=== PATIENT | male | born 1965 | race Caucasian/White ===

== ENCOUNTER 2016-12-09 08:34 | Emergency (ER) | payer OTHER ==
[2016-12-09 08:55] VITALS: BP 144/90
--- NOTE | 2016-12-09 10:03 | RAD ---
INDICATION: Atraumatic neck pain COMPARISON: None TECHNIQUE: Routine five-view imaging was performed FINDINGS: Bones: There are no acute bony findings. There are there is anterior vertebral spurring at C4-C6. There is minor mid cervical facet arthropathy. Craniocervical junction: The odontoid and atlantodental interval are normal. Alignment: Normal Disc spaces: The disc spaces are well-maintained Soft tissues: The prevertebral soft tissues are normal. IMPRESSION: MINOR MIDCERVICAL OSTEOARTHRITIS
[2016-12-09 12:36] LABS: Hematocrit 46 % (42-52); Hemoglobin 15.8 g/dl (14.0-18.0); Mean Corpuscular HGB Conc 34 g/dl (31-36); Mean Corpuscular Hemoglobin 32 pg (27-31); Mean Corpuscular Volume 93 fL (80-94); Mean Platelet Volume 9 um3 (7.4-10.4); Red Cell Distribution Width 12 % (10.5-15); White Blood Count 8.4 10^3/ul (3.5-10.8)
[2016-12-09 13:26] LABS: Erythrocyte Sed Rate 24 mm/Hr (0-20)
[2016-12-11 20:04] LABS: B. miyamotoi PCR, B Negative (Negative); Babesia divergens/MO-1 Negative (Negative); Babesia ducani Negative (Negative); Ehrlichia ewingii/canis Negative (Negative)
[2016-12-12 15:10] LABS: Lyme Disease IgG Ab WB Positive (Negative)
--- NOTE | 2016-12-14 22:40 | UC ---
Ismael Weiss Matthew, scribed for Cecily Perez MD on 12/09/16 at 0915 . Neck Pain HPI - HPI Summary HPI Summary: A 51 y/o male presents to [facility] [place] with progressively worsening right sided neck discomfort since two days ago. The pain began mildly two days ago and has been progressively worsening since yesterday. The pain is rated 5/10 in severity. The patient states that he chronically has a stiff neck and pain; however this pain is worse than normal. Associated symptoms include pain with swallowing. The patient denies trauma, weakness, and tingling. The pain worsens with flexion of the neck. He is also c/o of red streak on his right thigh since three weeks ago and an ovoid rash on his left thigh. He states that the red streaks appear similar to a rash behind his knee approximate 6 months ago. At that time, he was seen by his PCP, who prescribed Abx, which improved his symptoms. He denies rashes and lumps on his groin. - History of Current Complaint Chief Complaint: UCBackPain Stated Complaint: NECK PAIN Time Seen by Provider: 12/09/16 08:52 Hx Obtained From: Patient Onset/Duration Of Injury/Symptoms: Days - two days ago Mechanism Of Injury: No Known Trauma Timing: Constant Onset/Duration: Gradual Onset - progessively worsening Severity: Moderate Pain Intensity: 5 Pain Scale Used: 0-10 Numeric Location: Discrete At: - right sided neck pain Aggravating Factors: Movement - flexion of the neck Alleviating Factors: Nothing Associated Signs & Symptoms: Negative: Weakness - Allergies/Home Medications Allergies/Adverse Reactions: Allergies Allergy/AdvReac Type Severity Reaction Status Date / Time No Known Allergies Allergy Verified 12/09/16 08:37 Home Medications: Home Medications B-Complex Vitamins [Vitamin B Complex] 12/09/16 [History] Levothyroxine TAB* [Synthroid 25 MCG TAB*] 12/09/16 [History] Pravastatin (NF) [Pravachol (NF)] 12/09/16 [History] PMH/Surg Hx/FS Hx/Imm Hx Endocrine History Of: Reports: Thyroid Disease - hypo Cardiovascular History Of: Denies: Pacemaker/ICD - Surgical History Surgical History: Yes Surgery Procedure, Year, and Place: LEFT SHOULDER SURGERY - Family History Known Family History: Negative: Cardiac Disease, Hypertension, Diabetes - Social History Alcohol Use: Weekly Alcohol Amount: 3-4 x's weekly Substance Use Type: None Smoking Status (MU): Heavy Every Day Tobacco Smoker Type: Cigarettes Amount Used/How Often: 1 1/2 PPD Length of Time of Smoking/Using Tobacco: began at 20 years of age Have You Smoked in the Last Year: Yes Review Of Systems Constitutional: Positive: Negative Skin: Positive: Rash - red streaks on the right thigh and an oviod rash on the left thigh ENT: Positive: Negative, Dental Pain Cardiovascular: Positive: Negative Gastrointestinal: Positive: Negative Genitourinary: Positive: Negative Musculoskeletal: Positive: Myalgia - right sided neck pain Neurological: Positive: Negative Psychological: Positive: Negative All Other Systems Reviewed And Are Negative: Yes Physical Exam Triage Information Reviewed: Yes Appearance: Well-Appearing - sitting up during exam. but hurts to move neck to the right., Well-Nourished Vital Signs: Initial Vital Signs Temp 97.1 F 12/09/16 08:38 Pulse 100 12/09/16 08:38 Resp 16 12/09/16 08:38 BP 155/112 12/09/16 08:38 Pulse Ox 100 12/09/16 08:38 Vital Signs Reviewed: Yes Eye Exam: Normal ENT Exam: Normal Neck exam: Other Neck: Positive: No Lymphadenopathy Respiratory Exam: Normal Respiratory: Positive: Chest non-tender, Lungs clear, Normal breath sounds, No respiratory distress, No accessory muscle use Cardiovascular Exam: Normal Cardiovascular: Positive: RRR, No Murmur, Pulses Normal, Brisk Capillary Refill Abdominal Exam: Normal Abdomen Description: Positive: Nontender, No Organomegaly, Soft, Bruit Bowel Sounds: Positive: Present Musculoskeletal Exam: Normal - neck with tenderness to right side and spasm. No focal richelle tenderness, but tenderness elicited adrianna with turn to right -> approx c 4 - 6 region. No crepitus. No discoloration. SCM bellies nontender. Painful and hesitation to turn to the right, fully flex and extend. No paresth / dysesth / focal weakness. Neurological Exam: Normal - DTR's 2+ rad / br / popl grossly equal. Feet warm to touch. Distal sens x 4 ext's LT general intact. CN- 1 - 12 intact, denies smell deficit. Psychological Exam: Normal - conversing easily and appropriately Skin Exam: Other - normal color and turgor R post med distal thigh extending just above popl fossa with dark red, + blachable, flat, fairly uniform rash. approx 18cmL x 12cmW not hot to touch. No drainage, nontender to examination. No appreciable inguinal or popl adenopathy. R lat thigh with nearly circumferential raised circular lesion. 2cm L x 1 cm W Highly susp of fungal dermatitis. (this is different from post thigh rash). Diagnostics - Radiology C-Spine XR Xray Interpretation: No Acute Changes - IMPRESSION: MINOR MIDCERVICAL OSTEOARTHRITIS Radiology Interpretation Completed By: Radiologist Neck Pain Course/Dx - Course Course Of Treatment: No new problems in [facility]. Considered below differential Dx s. Pt reports that approx 6 mo ago, was treated w/ abx (doxy?) for presumptive lyme rash. Length of time unclear. As such, will check tick borne panel, lyme , inflamm studies. D/w pt, he expresses understanding and agreement. R neck + spasm c/w torticollis. Hx degenerative d/o's to neck in the past. Likely correlation. Xray report neck reviewed in [facility]. Reviewed w/ pt. He will f /u pcp in about a week for lab review and neck recheck. Smoking cessation encouraged. BP elevated today (recheck diast 90). Will f/u w pcp regarding this as well. Rx -. doxy x 30 days. Ibuprofen 600mg prn. Lotrisone (fungal dermatitis). [place] 5/325 # 16. Narc talk. Denies hx addiction. ISTOP reviewed. . soft collar for comfort. Questions answered to the best of my ability. - Differential Dx/Diagnosis Provider Diagnoses: acute torticollis. arthritis. rash, consider tick borne related. elevated bp Discharge - Discharge Plan Condition: Stable Disposition: HOME Prescriptions: Clotrimazole/Betamethasone* [Lotrisone Cream*] 1 applic TOPICAL BID #1 tube DOXYcycline CAP(*) [DOXYcycline 100MG CAP(*)] 100 mg PO BID #60 cap HYDROcodone/ACETAMIN 5-325 MG* [[place] 5-325 TAB*] 2 tab PO Q6H PRN #16 tab MDD 8 PRN Reason: Pain Ibuprofen TAB* [Motrin TAB* 600 MG] 600 mg PO Q8H PRN #30 tab PRN Reason: Pain Patient Education Materials: How to Stop Smoking (ED), Lyme Disease (ED), Cigarette Smoking and Your Health (GEN), Spasmodic Torticollis (ED), Soft Cervical Collar (ED), Hypertension (ED), Neck Pain (ED) Referrals: Topher Low MD [Primary Care Provider] - Additional Instructions: You have blood tests in the lab, looking for tick diseases Blood pressure elevated today. Follow up with Dr Low in about a week for recheck and lab review. Please consider decrease or stop smoking. Your blood pressure measured today was 144/90. The documentation as recorded by the Ismael olsen Matthew accurately reflects the service I personally performed and the decisions made by me, Cceily Perez MD.
== END 2016-12-09 10:29 | disposition home or self-care (01) ==
LOC: UCEAST 08:34
DX: M43.6 Torticollis (principal); M47.812 Spondylosis without myelopathy or radiculopathy, cervical region; R21 Rash and other nonspecific skin eruption; R03.0 Elevated blood-pressure reading, without diagnosis of hypertension; F17.210 Nicotine dependence, cigarettes, uncomplicated
CPT/HCPCS: 36415; 72050; 85025; 85652; 86140; 86617; 86618; 87798; 99212; G0463

== ENCOUNTER 2017-06-12 07:10 | Emergency (ER) | payer OTHER ==
[2017-06-12 07:34] VITALS: BP 169/91
--- NOTE | 2017-06-12 07:52 | UC ---
Throat Pain/Nasal Maximo HPI - HPI Summary HPI Summary: [address] AND FATIGUE. FELT BETTER YESTERDAY BUT THEN TODAY FELT WORSE AGAIN. NO FEVER. NO DYSPHAGIA. - History of Current Complaint Chief Complaint: UCRespiratory Stated Complaint: THROAT PAIN Time Seen by Provider: 06/12/17 07:42 Hx Obtained From: Patient Onset/Duration: Gradual Onset, Lasting Days, Still Present Severity: Moderate Pain Intensity: 7 Pain Scale Used: 0-10 Numeric Cough: None Associated Signs & Symptoms: Negative: Fever - Allergies/Home Medications Allergies/Adverse Reactions: Allergies Allergy/AdvReac Type Severity Reaction Status Date / Time No Known Allergies Allergy Verified 12/09/16 08:37 Home Medications: Home Medications Cyanocobalamin [Vitamin B-12] 1 tab PO DAILY 06/12/17 [History Confirmed ] PMH/Surg Hx/FS Hx/Imm Hx Endocrine History: Hypothyroidism, Dyslipidemia - Surgical History Surgical History: Yes Surgery Procedure, Year, and Place: LEFT SHOULDER SURGERY 1979' - Family History Known Family History: Negative: Cardiac Disease, Hypertension, Diabetes - Social History Alcohol Use: Weekly Alcohol Amount: 3-4 x's weekly Substance Use Type: None Smoking Status (MU): Heavy Every Day Tobacco Smoker Type: Cigarettes Amount Used/How Often: 1 1/2 PPD Length of Time of Smoking/Using Tobacco: began at 20 years of age Have You Smoked in the Last Year: Yes Review of Systems Constitutional: Fatigue ENT: Sore Throat Respiratory: Negative Cardiovascular: Negative Gastrointestinal: Negative All Other Systems Reviewed And Are Negative: Yes Physical Exam Triage Information Reviewed: Yes Appearance: Well-Appearing, No Pain Distress, Well-Nourished Vital Signs: Initial Vital Signs Temp 97.5 F 06/12/17 07:24 Pulse 100 06/12/17 07:24 Resp 16 06/12/17 07:24 BP 169/91 06/12/17 07:24 Pulse Ox 97 06/12/17 07:24 Vital Signs Reviewed: Yes Eyes: Positive: Conjunctiva Clear ENT: Positive: Hearing grossly normal, Pharyngeal erythema - SCATTERED SMALL SPFL ULCERATIONS, TMs normal. Negative: Tonsillar swelling, Tonsillar exudate, Muffled/hoarse voice Neck: Positive: Supple, Nontender, No Lymphadenopathy Respiratory Exam: Normal Cardiovascular Exam: Normal Abdomen Description: Positive: Soft Musculoskeletal: Positive: No Edema Neurological: Positive: Alert Psychological: Positive: Age Appropriate Behavior Skin: Negative: rashes Diagnostics - Laboratory Diagnostic Studies Completed/Ordered: RAPID STREP NEGATIVE Throat Pain/Nasal Course/Dx - Differential Dx/Diagnosis Provider Diagnoses: ACUTE PHARYNGITIS Discharge - Discharge Plan Condition: Stable Disposition: HOME Prescriptions: Acetaminop/Codeine 30 MG TAB* [Tylenol/Codeine 30 MG TAB*] 1 - 2 tab PO Q6H PRN #20 tab MDD 8 PRN Reason: Pain Lidocaine 2% VISCOUS* 5 - 10 ml MT Q3HR PRN #150 ml PRN Reason: Pain Patient Education Materials: Pharyngitis (ED) Referrals: Topher Low MD [Primary Care Provider] - If Needed Additional Instructions: STREP TEST NEGATIVE. LIKELY VIRAL IN ETIOLOGY AND WILL RESOLVE WITH TIME. VISCOUS LIDOCAINE AND OTC IBUPROFEN NEEDED FOR DISCOMFORT. TYLENOL #3 IF NEEDED. FOLLOW-UP IF NOT IMPROVING OVER THE NEXT 1-2 WEEKS.
== END 2017-06-12 08:38 | disposition home or self-care (01) ==
LOC: UCEAST 07:10
DX: J02.9 Acute pharyngitis, unspecified (principal); R53.83 Other fatigue; E03.9 Hypothyroidism, unspecified; E78.5 Hyperlipidemia, unspecified; F17.210 Nicotine dependence, cigarettes, uncomplicated
CPT/HCPCS: 87651; 99212; G0463

== ENCOUNTER 2017-06-13 05:32 | Emergency (ER) | payer OTHER ==
[2017-06-13] MEDS ORDERED: methylPREDNISolone 125 MG* 2 ML VIAL IV ONE (05:50)
[2017-06-13] MEDS ORDERED: NS 0.9% 1000 ML* 2,000 ML IV ONE (05:50)
[2017-06-13] MEDS ORDERED: Ketorolac INJ* 30 MG/ML 1 ML VIAL IV PUSH ONE (05:53)
[2017-06-13] MEDS ORDERED: cefTRIAXone VIAL(*) 1,000 MG in NS 0.9% 50 ML* 50 ML IVPB ONE (05:53)
[2017-06-13 06:13] LABS: Hematocrit 47 % (42-52); Hemoglobin 15.9 g/dl (14.0-18.0); Mean Corpuscular HGB Conc 34 g/dl (31-36); Mean Corpuscular Hemoglobin 32 pg (27-31); Mean Corpuscular Volume 94 fL (80-94); Mean Platelet Volume 8 um3 (7.4-10.4); Red Blood Count 4.98 10^6/ul (4.0-5.4); Red Cell Distribution Width 13 % (10.5-15)
[2017-06-13 06:27] LABS: Albumin 4.2 g/dL (3.2-5.2); Calcium 9.8 mg/dL (8.6-10.3); EGFR African American 126.9 (>60); EGFR Non-African American 98.7 (>60); Globulin 3.5 g/dL (2-4); Potassium 3.7 mmol/L (3.5-5.0); Total Bilirubin 0.7 mg/dL (0.2-1.0); Total Protein 7.7 g/dL (6.4-8.9)
--- NOTE | 2017-06-13 06:52 | ED ---
Geraldo Weiss Rebecca, scribed for LeslieMichele on 06/13/17 at 0546 . Throat Pain/Nasal Congestion - HPI Summary HPI Summary: Pt is a 51 yo M who presents to ED c/o throat pain. Pain began 3 days ago and has been constant since onset, improving slightly Saturday morning, but worsening again Saturday evening. Pain is currently moderate, ranked 6/10. Additionally c/o dental pain and decreased PO intake secondary to pain. Denies fever, CP, SOB, ear pain. Sx aggravated and alleviated by nothing. Pt evaluated by [facility] yesterday for the same sx where a rapid strep returned negative and he was given an Rx for Lidocaine and Ibuprofen with Codeine which is not helping sx. - History of Current Complaint Chief Complaint: EDThroatPain Time Seen by Provider: 06/13/17 05:42 Hx Obtained From: Patient Onset/Duration: Lasting Days, Still Present Severity: Moderate - 6/10 - Allergies/Home Medications Allergies/Adverse Reactions: Allergies Allergy/AdvReac Type Severity Reaction Status Date / Time No Known Allergies Allergy Verified 06/13/17 05:36 PMH/Surg Hx/FS Hx/Imm Hx Endocrine/Hematology History: Reports: Hx Thyroid Disease - hypo Denies: Hx Diabetes Cardiovascular History: Reports: Hx Hypercholesterolemia Denies: Hx Hypertension, Hx Pacemaker/ICD Respiratory History: Denies: Hx Asthma, Hx Chronic Obstructive Pulmonary Disease (COPD) GI History: Denies: Hx Ulcer Musculoskeletal History: Denies: Hx Scoliosis Sensory History: Denies: Hx Hearing Aid Neurological History: Denies: Hx Headaches, Other Neuro Impairments/Disorders Psychiatric History: Denies: Hx Panic Disorder - Surgical History Surgery Procedure, Year, and Place: LEFT SHOULDER SURGERY Infectious Disease History: No Infectious Disease History: Denies: Hx Clostridium Difficile, Hx Hepatitis, Hx Human Immunodeficiency Virus (HIV), Hx of Known/Suspected MRSA, Hx Shingles, Hx Tuberculosis, Hx Known/ Suspected VRE, Hx Known/Suspected VRSA, History Other Infectious Disease, Traveled Outside the [place] in Last 30 Days - Family History Known Family History: Negative: Cardiac Disease, Hypertension, Diabetes - Social History Alcohol Use: Weekly Alcohol Amount: 3-4 x's weekly Substance Use Type: Reports: None Smoking Status (MU): Heavy Every Day Tobacco Smoker Type: Cigarettes Amount Used/How Often: 1 1/2 PPD Length of Time of Smoking/Using Tobacco: began at 20 years of age Have You Smoked in the Last Year: Yes Review of Systems Negative: Fever Positive: Dental Pain, Sore Throat. Negative: Ear Ache Negative: Chest Pain Negative: Shortness Of Breath Positive: Other - Decreased PO intake All Other Systems Reviewed And Are Negative: Yes Physical Exam Triage Information Reviewed: Yes Vital Signs On Initial Exam: Initial Vitals Temp Pulse Resp BP Pulse Ox 97.6 F 120 16 169/109 98 06/13/17 05:36 06/13/17 05:36 06/13/17 05:36 06/13/17 05:36 06/13/17 05:36 Vital Signs Reviewed: Yes Appearance: Positive: Well-Appearing, No Pain Distress Skin: Positive: Warm, Skin Color Reflects Adequate Perfusion, Dry Head/Face: Positive: Normal Head/Face Inspection Eyes: Positive: EOMI, EDGAR ENT: Positive: Pharyngeal erythema, Tonsillar swelling Neck: Positive: Supple, Nontender Respiratory/Lung Sounds: Positive: Clear to Auscultation, Breath Sounds Present Cardiovascular: Positive: Pulses are Symmetrical in both Upper and Lower Extremities, Tachycardia Abdomen Description: Positive: Nontender, Soft Bowel Sounds: Positive: Present Musculoskeletal: Positive: Normal, Strength/ROM Intact Neurological: Positive: Normal, Sensory/Motor Intact, Alert, Oriented to Person Place, Time Diagnostics - Vital Signs Vital Signs Temp Pulse Resp BP Pulse Ox 06/13/17 05:38 97.6 F 120 16 169/109 99 06/13/17 05:36 97.6 F 120 16 169/109 98 - Laboratory Result Diagrams: 06/13/17 06:00 06/13/17 06:00 Lab Statement: Any lab studies that have been ordered have been reviewed, and results considered in the medical decision making process. - Radiology CXR Xray Interpretation: No Acute Changes Radiology Interpretation Completed By: ED Physician Re-Evaluation - Re-Evaluation First Eval Re-Evaluation Time: 06:45 Change: Improved Comment: Discussed CXR and lab results. EENT Course/Dx - Course Assessment/Plan: Pt is a 51 yo M who presents to ED c/o throat pain. Pain began 3 days ago and has been constant since onset, improving slightly Saturday morning , but worsening again Saturday evening. Pain is currently moderate, ranked 6/10. Additionally c/o dental pain and decreased PO intake secondary to pain. Denies fever, CP, SOB, ear pain. Pt evaluated by [facility] yesterday for the same sx where a rapid strep returned negative and he was given an Rx for Lidocaine and Ibuprofen with Codeine which is not helping sx. CXR reveals no acute findings. Pt will be D/C to home with Dx of dysphagia and pharyngitis with Rx for Augmentin and Deltasone. He understands and agrees. Patient's medications reviewed this visit. - Diagnoses Provider Diagnoses: Pharyngitis, Dysphagia Discharge - Discharge Plan Condition: Stable Disposition: HOME Prescriptions: Amoxicillin/Clavulanate TAB* [Augmentin TAB 875*] 875 mg PO BID #14 tab predniSONE TAB* [Deltasone TAB*] 50 mg PO ONCE #4 tab Patient Education Materials: Pharyngitis (ED), Dysphagia (ED) Referrals: Topher Low MD [Primary Care Provider] - 3 Days The documentation as recorded by the Geraldo olsen Rebecca accurately reflects the service I personally performed and the decisions made by Leslie millan Emmanuel.
[2017-06-13 07:07] VITALS: BP 168/89
--- NOTE | 2017-06-13 08:10 | RAD ---
INDICATION: Shortness of breath. COMPARISON: There are no prior studies available for comparison. TECHNIQUE: A portable view of the chest was obtained. FINDINGS: Cardiac and mediastinal contours appear to be within normal limits. The lungs are clear. No pleural effusion is seen. IMPRESSION: NO EVIDENCE FOR ACUTE DISEASE.
== END 2017-06-13 07:13 | disposition home or self-care (01) ==
LOC: ED 05:32
DX: J02.9 Acute pharyngitis, unspecified (principal); K08.89 Other specified disorders of teeth and supporting structures; F17.210 Nicotine dependence, cigarettes, uncomplicated; R13.10 Dysphagia, unspecified
CPT/HCPCS: 36415; 71010; 80053; 85025; 85610; 85730; 96374; 99283; J0696; J1885; J2930

== ENCOUNTER 2018-07-02 16:03 | Observation (INO) | payer SELFPAY ==
--- OUTSIDE RECORDS SUMMARY | 2018-07-02 16:30 | XMS REPORT ---
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 Active Onset: 05/01/2007 Anxiety state Topher Low M.D. Active Onset: 10/08/2011 Alcohol abuse Topher Low M.D. Active Onset: 07/31/2017 Hypothyroidism Topher Low M.D. Active Onset: 07/23/2016 Mixed hyperlipidemia Topher Low M.D. Active Onset: 09/01/2014 Pure hyperglyceridemia Topher Low M.D. Active Onset: 03/08/2014 Abrasion of wrist Ger Vo M.D. Active Family History Date Family Member(s) Problem(s) Comments Onset: (age 40 Years) Father [place] First Sister Vitamin B12 Deficiency (Non Anemic) Social History Type Date Description Comments Cigarette Use Current Cigarette Smoker 1 Pack Daily Smoking Patient is a current smoker, smokes every day Allergies, Adverse Reactions, Alerts Date Description Reaction Status Severity Comments 06/21/2011 NKDA active Medications Medication Date Status Form Strength Qnty SIG Indications Ordering Provider Nicotine Mini 01/22 Active Lozenges 2mg 243un Weeks 1-6: 1 Topher A. its lozenge every Darlow, 1-2 hours; M.D. 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 HCL s Tablet By Darlow, Mouth Every M.D. Day Levothyroxine 02/28 Active Tablets 25mcg 60tab Take 1 Tablet Topher A. Sodium s By Mouth Darlow, Every Day M.D. Lovaza 09/01 Active Capsules 1gm 360ca Take 2 Carolina ps Capsules By Carlos, Mouth Two SURVEY OPERATIONS DIRECTOR Times Daily Pravastatin 05/26 Active Tablets 40mg 90tab Take 1 Tablet Topher A. Sodium s By Mouth One Darlow, Time Daily M.D. Vitamin B-12 Active Tablets 1000mcg 90tab 1 by mouth Unknown / s every day Non-Adherent 09/30 Hx 50uni use 2daily T24.002D Natalia Pad 3"X4" /2016 ts when dressing More, - wound on left SURVEY OPERATIONS DIRECTOR 06/27 Conforming 09/30 Hx 50uni use one to T24.002D Natalia Stretch Gauze /2016 ts wrap left More, Bandage 4" - foot daily SURVEY OPERATIONS DIRECTOR 06/27 for 3-4 weeks Silver 09/26 Hx Cream 1% 150gm apply thick T24.002A Nydia Peña Sulfadiazine /2016 layer to burn Jeanne, - twice daily M.D. 06/27 Doxycycline 12/09 Hx Tablets 100mg 60tab 1 by mouth Unknown Hycl DR velasquez twice a day - for 30 days 07/02 Viagra 07/23 Hx Tablets 100mg 2tabs 1/2 or 1 tab Topher A. /2015 prn 30-60 min Maranda, - before M.D. 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 piece every 1 Darlow, - to 2 hours; M.D. 07/23 Weeks -9, piece every 2 to 4 hours; Weeks -12, one piece every 4 to 8 hours. Viagra 02/28 Hx Tablets 100mg 35tab 1/2 or 1 tab Topher A. s prn 30-60 min Maranda, - before M.D. 07/23 Nicotrol 11/02 Hx Inhaler 10mg QS use 6 -16 Topher A. cartridges Maranda, - per day for 6 M.D. Pravastatin 08/26 Hx Tablets 20mg 30tab 1 po qd Topher A. s Maranda - M.DGil 08/26 Pravastatin 08/26 Hx Tablets 20mg 30tab 1 po qd Topher A. s Maranda - M.DGil 05/26 Nicoderm CQ 08/25 Hx Patches 21mg/24HR 30uni 1 qd x 1 305.1 Topher A. 24HR ts month Maranda - M.DGil 03/08 Valacyclovir 07/26 Hx Tablets 1gm 45tab Take One-Half 054.9 Topher A. s (11/26) Tablet Maranda, - Daily M.D. 08/25 Oxazepam 05/07 Hx Capsules 15mg 10cap 1 po q8h prn Topher A. s Maranda - M.DGil 07/05 Abilify 11/22 Hx Tablets 5mg 90tab 1 po qd 300.00 Topher A. s Maranda - M.DGil 01/03 Abilify 09/18 Hx Tablets 2mg 90tab 1 po qd 300.00 Topher A. s Maranda - M.DGil 11/22 Pristiq 08/07 Hx Tablets 100mg 90tab 1/2 po qd 300.00 Topher A. ER 24HR s Alexis Low M.D. 05/07 Klonopin 07/05 Hx Tablets 0.5mg 90tab 1 po qd prn 300.00 Topher A. Alexis Cool M.D. 05/07 Pristiq 07/05 Hx Tablets 50mg 30tab 1 po qd 300.00 Topher A. ER 24HR Alexis Oconnor M.D. 08/07 Viagra 09/22 Hx Tablets 100mg 35tab 1/2 or 1 tab Topher AGil s prn 30-60 min Alexis Low M.D. 05/07 Nicotrol 05/18 Hx Inhaler 10mg 3boxe use as Topher Payne Inhaler s Alexis Peterson M.D. 07/04 Labs 12/28 Hx stat ck-mb Topher Payne Alexis Low M.D. 12/29 Omeprazole 12/28 Hx Capsules 20mg 30cap 1 po qd Topher A. Alexis Camarillo M.D. 07/04 Viagra 09/08 Hx Tablets 50mg 30tab 2-1 po 1 hr Topher AGil s prior to Maranda - sexual M.DGil 09/22 Chantix 05/20 Hx 1unit as directed Topher Payne Starter Alexis Oconnor M.D. 09/07 Valtrex 05/20 Hx Tablets 1gm 45tab One-Half 054.9 Topher A. s Tablet By Maranda, - Mouth Every M.D. Simvastatin 12/02 Hx Tablets 20mg 90tab 1 PO QHS Topher AGil Alexis Oconnor M.D. 12/02 Pravastatin 12/02 Hx Tablets 20mg 30tab 1 po qd Topher A. Alexis Oconnor M.D. 05/20 Remeron 05/01 Hx Tablets 30mg 90tab 1 qhs Topher Payne Alexis Oconnor M.D. 05/20 Buspar 10/29 Hx Tablets 15mg 1 po qd [facility] 11/08 Of Paxil 10/29 Hx Tablets 20mg 90tab 1 po qd s [facility] 05/01 Of Mylo Triamcinolone 10/04 Hx Cream 0.1% 45gm Apply To Sandeep Alcantar Acetonide Affected Skin Breiman, - bid prn Albert 05/01 Lescol-XL 08/01 Hx 80mg 90uni 1 po qd Topher A. /2005 Alexis Gilliam M.D. 12/02 Buspar 08/01 Hx Tablets 15mg [address] Gonzales /2005 Doctor - 10/29 Note 03/06 Hx can not use Topher A. /2005 his Maranda - membership at [facility] 03/27 this time due to his neck problems Norflex 02/26 Hx Tablets 100mg 30tab 1 po bid as 272.0 Topher A. /2005 s Alexis Ríos M.D. 08/01 Relafen 02/26 Hx Tablets 500mg 30tab 1 po bid as 272.0 Topher A. /2005 s Alexis Peterson M.D. 08/01 Provigil 01/29 Hx Tablets 300mg 30tab 1 po qam Topher A. /2005 Alexis Oconnor M.D. 02/26 Physical 01/29 Hx treatment and Topher A. Therapy evaluation Alexis Low neck pain Jose.Jospeh 02/26 Provigil 01/03 Hx Tablets 200mg 30tab 1 po qd Topher A. /2005 Alexis Oconnor M.D. 01/29 Cymbalta 12/04 Hx Capsules 60mg 90cap 1 po qd Topher A. /2005 Alexis Oconnor M.D. 02/26 Nicotine 12/04 Hx 21mg 28uni 1 qd 305.1 Topher A. Patches Alexis Gilliam M.D. 01/29 Campral 10/[address] Gonzales Doctor - 01/03 Wellbutrin SR 10/25 Hx Tablets 0tabs 1 po bid Topher A. /2004 Alexis Low M.D. 10/25 Cymbalta 10/25 Hx Capsules 30mg 90cap 1 po qd Topher A Alexis Oconnor M.D. 12/04 Physical 10/25 Hx treatment and Topher A evaluation Alexis Low Neck pain M.DGil 01/03 Note No Work 10/25 Hx out of work indefinitely Maranda, - from 09/05/05 [facility] 01/03 until notice, anticipate return 11/26/05 Klonopin 09/05 Hx Tablets 0.5mg 60tab 1 po bid Topher A Alexis Oconnor M.D. 10/25 Work Excuse 09/05 Hx unable to work until Maranda - isreal Price 09/19 Celexa 07/26 Hx Tablets 20mg 60tab 2 po qd Topher A Alexis Oconnor M.D. 10/25 Buspar 11/27 Hx 10mg 60uni one bid Topher A Alexis Gilliam M.D. 08/01 Effexor XR 08/18 Hx Tablets 90tab Take 75 MG A s Day For A Maranda, - Week M.DGil 11/27 Then 37.5 /2005 MG A Day For A Week Effexor XR 05/05 Hx 75mg 30uni 1 po po qd Topher A Alexis Gilliam M.D. 08/18 Zoloft 03/06 Hx 100mg 30uni one PO qd Topher A Alexis Gilliam M.D. 05/05 Humibid DM 09/09 Hx 20uni 1 Tab Q 12 H ts prAlexis Erwin Afnp-C 09/19 Robitussin ac 09/09 Hx 4Oz 1-2 TSP PO Q4H prAlexis Erwin Afnp-C 09/19 Levaquin 09/07 Hx 500mg 10uni 1 qd Behzad J. Alexis Quinn M.D. 09/17 Wellbutrin-SR 04/27 Hx 150mg 30uni 1 qd Topher A. Alexis Gilliam MJonathan 09/07 Lescol-XL 07/18 Hx 80mg 90uni 1 po qd Topher A. Alexis Gilliam M.D. 02/26 Nizoral 01/22 Hx 200mg 30uni Apply qd Topher A. ts Maranda - M.DGil 02/19 Vioxx 02/13 Hx 25mg 33uni 2 PO qd For Topher A. ts The Next 3 Darrenetta, - Days, Then 1 M.D. 03/15 PO qd Neoprene 02/13 Hx 1unit Wear To Work Topher A. Slee s And During Sukhjinder, - Activity M.D. 02/14 Pristiq Hx Tablets 100mg 90tab 1 po qd Topher A. /0000 ER 24HR s Alexis Low [facility] 09/10 Abilify Hx Tablets 5mg 30tab 1 po qd Unknown /0000 s - 09/10 Zoloft Hx Tablets 100mg 30tab 1 1/2 po qd Unknown /0000 s - 08/25 Neurontin Hx Capsules 300mg 30cap 1 po tid Unknown /0000 s - 08/25 Fish Oil Hx Capsules 1000mg 1 by mouth Unknown /0000 DR every day - 09/01 Nicorette Hx Gum 4mg will take as Unknown /0000 directed - 07/23 Immunizations CPT Code Status Date Vaccine Lot # [id number] Given 2017 Influenza Vac, Quadrivalent, Slit Virus, Im [id number] Given 09/15/2016 Influenza Vac, Quadrivalent, Slit Virus, Im [id number] Given 09/03/2015 Influenza Vac, Quadrivalent, Slit Virus, Im [id number] Given 09/01/2014 DO Not Use Split Influenza Virus Vaccine [id number] Given 03/08/2014 Tdap Tetanus, W Pertussis [id number] Given 08/25/2013 DO Not Use Split Influenza Virus Vaccine [id number] Vital Signs Date Vital Result Comment 06/27/2018 BP Systolic 162 mmHg BP Diastolic 102 mmHg Heart Rate 96 /min Body Temperature 98.1 F Height 75 inches 6'3" Weight 210.50 lb BMI (Body Mass Index) 26.3 kg/m2 10/09/2017 BP Systolic 138 mmHg BP Diastolic 80 mmHg Heart Rate 96 /min Body Temperature 97.7 F Height 75 inches 6'3" Weight 209.00 lb BMI (Body Mass Index) 26.1 kg/m2 09/30/2017 BP Systolic 142 mmHg BP Diastolic 92 mmHg Heart Rate 88 /min Body Temperature 98.1 F Respiratory Rate 16 /min Weight 211.25 lb 09/26/2017 BP Systolic 120 mmHg BP Diastolic 80 mmHg Heart Rate 68 /min Body Temperature 97.9 F Respiratory Rate 18 /min Weight 211.00 lb 07/31/2017 BP Systolic 130 mmHg BP Diastolic 80 mmHg Heart Rate 78 /min Body Temperature 98.1 F Respiratory Rate 16 /min Height 75 inches 6'3" Weight 208.00 lb BMI (Body Mass Index) 26.0 kg/m2 07/02/2017 BP Systolic 110 mmHg BP Diastolic 80 mmHg Heart Rate 88 /min Body Temperature 98.1 F Respiratory Rate 18 /min Weight 206.00 lb 12/19/2016 BP Systolic 140 mmHg BP Diastolic 80 mmHg Heart Rate 96 /min Body Temperature 97.9 F Height 75 inches 6'3" Weight 210.50 lb BMI (Body Mass Index) 26.3 kg/m2 09/28/2016 BP Systolic 120 mmHg BP Diastolic 80 mmHg Heart Rate 76 /min Body Temperature 98.4 F Respiratory Rate 16 /min Height 75 inches 6'3" Weight 204.00 lb BMI (Body Mass Index) 25.5 kg/m2 07/23/2016 BP Systolic 130 mmHg BP Diastolic 80 mmHg Heart Rate 84 /min Body Temperature 96.4 F Respiratory Rate 16 /min Height 75 inches 6'3" Weight 205.00 lb BMI (Body Mass Index) 25.6 kg/m2 06/15/2016 BP Systolic 110 mmHg BP Diastolic 80 mmHg Heart Rate 80 /min Body Temperature 98.6 F Respiratory Rate 18 /min Height 76 inches 6'4" Weight 207.00 lb BMI (Body Mass Index) 25.2 kg/m2 02/19/2015 BP Systolic 158 mmHg BP Diastolic 90 mmHg Heart Rate 96 /min Body Temperature 97.6 F Respiratory Rate 16 /min Height 76 inches 6'4" Weight 217.38 lb BMI (Body Mass Index) 26.5 kg/m2 09/01/2014 BP Systolic 130 mmHg BP Diastolic 86 mmHg Heart Rate 88 /min Body Temperature 97.0 F Respiratory Rate 16 /min Height 76 inches 6'4" Weight 224.00 lb BMI (Body Mass Index) 27.3 kg/m2 03/08/2014 BP Systolic 148 mmHg BP Diastolic 90 mmHg Heart Rate 80 /min Body Temperature 98.4 F Respiratory Rate 16 /min Height 75.75 inches 6'3.75" Weight 223.12 lb BMI (Body Mass Index) 27.3 kg/m2 08/25/2013 BP Systolic 132 mmHg BP Diastolic 82 mmHg Heart Rate 88 /min Body Temperature 97.6 F Respiratory Rate 16 /min Height 75.75 inches 6'3.75" Weight 213.25 lb BMI (Body Mass Index) 26.1 kg/m2 10/08/2011 BP Systolic 120 mmHg BP Diastolic 80 mmHg Heart Rate 84 /min Body Temperature 97.3 F Respiratory Rate 16 /min Height 75 inches 6'3" Weight 208.00 lb BMI (Body Mass Index) 26.0 kg/m2 09/10/2011 BP Systolic 120 mmHg BP Diastolic 70 mmHg Heart Rate 80 /min Body Temperature 97.1 F Respiratory Rate 12 /min Height 75 inches 6'3" Weight 205.00 lb BMI (Body Mass Index) 25.6 kg/m2 07/05/2011 BP Systolic 118 mmHg BP Diastolic 70 mmHg Heart Rate 88 /min Body Temperature 97.5 F Respiratory Rate 16 /min Height 75 inches 6'3" Weight 207.00 lb BMI (Body Mass Index) 25.9 kg/m2 05/07/2011 BP Systolic 136 mmHg BP Diastolic 80 mmHg Heart Rate 92 /min Body Temperature 97.6 F Respiratory Rate 12 /min Height 75 inches 6'3" Weight 205.00 lb BMI (Body Mass Index) 25.6 kg/m2 01/03/2011 BP Systolic 140 mmHg BP Diastolic 80 mmHg Heart Rate 88 /min Body Temperature 98.4 F Respiratory Rate 16 /min Height 75 inches 6'3" Weight 213.00 lb BMI (Body Mass Index) 26.6 kg/m2 09/18/2010 BP Systolic 140 mmHg BP Diastolic 84 mmHg Heart Rate 80 /min Body Temperature 97.9 F Respiratory Rate 12 /min Height 75 inches 6'3" Weight 198.00 lb BMI (Body Mass Index) 24.7 kg/m2 08/07/2010 BP Systolic 116 mmHg BP Diastolic 70 mmHg Heart Rate 84 /min Body Temperature 98.0 F Respiratory Rate 16 /min Height 75 inches 6'3" Weight 188.00 lb BMI (Body Mass Index) 23.5 kg/m2 07/05/2010 BP Systolic 140 mmHg BP Diastolic 76 mmHg Heart Rate 72 /min Respiratory Rate 16 /min Weight 190.00 lb 07/04/2009 BP Systolic 100 mmHg BP Diastolic 70 mmHg Heart Rate 72 /min Body Temperature 98.0 F Respiratory Rate 16 /min Weight 161.00 lb 12/28/2008 BP Systolic 110 mmHg BP Diastolic 68 mmHg Heart Rate 84 /min Body Temperature 97.6 F Respiratory Rate 12 /min Weight 188.00 lb 09/07/2008 BP Systolic 136 mmHg BP Diastolic 82 mmHg Heart Rate 76 /min Body Temperature 99.0 F Respiratory Rate 16 /min Height 75 inches 6'3" Measured Weight 198.00 lb BMI (Body Mass Index) 24.7 kg/m2 05/20/2008 BP Systolic 120 mmHg BP Diastolic 64 mmHg Heart Rate 88 /min Body Temperature 99.0 F Respiratory Rate 16 /min Height 75 inches 6'3" Measured Weight 216.00 lb BMI (Body Mass Index) 27.0 kg/m2 05/01/2007 BP Systolic 130 mmHg BP Diastolic 80 mmHg Heart Rate 72 /min Respiratory Rate 16 /min Height 75 inches 6'3" Measured Weight 209.00 lb BMI (Body Mass Index) 26.1 kg/m2 10/29/2006 BP Systolic 120 mmHg BP Diastolic 70 mmHg Heart Rate 80 /min Respiratory Rate 16 /min Height 75 inches 6'3" Measured Weight 200.00 lb BMI (Body Mass Index) 25.0 kg/m2 10/04/2006 BP Systolic 112 mmHg BP Diastolic 72 mmHg Body Temperature 97.4 F Height 75 inches 6'3" Measured 08/01/2006 BP Systolic 120 mmHg BP Diastolic 82 mmHg Heart Rate 80 /min Height 75 inches 6'3" Measured Weight 205.00 lb BMI (Body Mass Index) 25.6 kg/m2 05/20/2006 BP Systolic 140 mmHg BP Diastolic 82 mmHg Heart Rate 96 /min Height 75 inches 6'3" Measured Weight 201.00 lb BMI (Body Mass Index) 25.1 kg/m2 03/27/2006 BP Systolic 110 mmHg BP Diastolic 68 mmHg Heart Rate 72 /min Respiratory Rate 16 /min Height 75 inches 6'3" Measured Weight 198.00 lb BMI (Body Mass Index) 24.7 kg/m2 02/26/2006 BP Systolic 130 mmHg BP Diastolic 66 mmHg Heart Rate 96 /min Height 75 inches 6'3" Measured Weight 200.00 lb BMI (Body Mass Index) 25.0 kg/m2 01/29/2006 BP Systolic 122 mmHg BP Diastolic 82 mmHg Heart Rate 68 /min Height 75 inches 6'3" Measured Weight 198.00 lb BMI (Body Mass Index) 24.7 kg/m2 01/14/2006 BP Systolic 120 mmHg BP Diastolic 68 mmHg Heart Rate 76 /min Respiratory Rate 12 /min Height 75 inches 6'3" Measured Weight 200.00 lb BMI (Body Mass Index) 25.0 kg/m2 01/03/2006 BP Systolic 124 mmHg BP Diastolic 70 mmHg Heart Rate 72 /min Height 75 inches 6'3" Measured Weight 202.00 lb BMI (Body Mass Index) 25.2 kg/m2 12/04/2005 BP Systolic 126 mmHg BP Diastolic 78 mmHg Heart Rate 78 /min Height 75 inches 6'3" Measured Weight 201.00 lb BMI (Body Mass Index) 25.1 kg/m2 10/31/2005 BP Systolic 112 mmHg BP Diastolic 70 mmHg Heart Rate 62 /min Height 75 inches 6'3" Measured Weight 202.00 lb BMI (Body Mass Index) 25.2 kg/m2 10/25/2005 BP Systolic 112 mmHg BP Diastolic 72 mmHg Heart Rate 84 /min Height 75 inches 6'3" Measured Weight 204.00 lb BMI (Body Mass Index) 25.5 kg/m2 09/05/2005 BP Systolic 136 mmHg BP Diastolic 100 mmHg Heart Rate 102 /min Height 75 inches 6'3" Measured Weight 202.00 lb BMI (Body Mass Index) 25.2 kg/m2 07/26/2005 BP Systolic 130 mmHg BP Diastolic 80 mmHg Heart Rate 72 /min Height 75 inches 6'3" Measured Weight 208.00 lb BMI (Body Mass Index) 26.0 kg/m2 09/14/2004 BP Systolic 112 mmHg BP Diastolic 80 mmHg Heart Rate 72 /min Height 75 inches 6'3" Measured Weight 206.00 lb BMI (Body Mass Index) 25.7 kg/m2 05/05/2004 BP Systolic 102 mmHg BP Diastolic 64 mmHg Heart Rate 88 /min Height 75 inches 6'3" Measured Weight 196.00 lb BMI (Body Mass Index) 24.5 kg/m2 03/06/2004 BP Systolic 126 mmHg BP Diastolic 82 mmHg Heart Rate 84 /min Height 75 inches 6'3" Measured Weight 198.00 lb BMI (Body Mass Index) 24.7 kg/m2 09/09/2003 BP Systolic 130 mmHg BP Diastolic 90 mmHg Heart Rate 88 /min Body Temperature 98.4 F Height 75.5 inches 6'3.50" Weight 193.00 lb BMI (Body Mass Index) 23.8 kg/m2 09/07/2003 BP Systolic 110 mmHg BP Diastolic 78 mmHg Heart Rate 80 /min Body Temperature 100.3 F Height 75.5 inches 6'3.50" Weight 194.00 lb BMI (Body Mass Index) 23.9 kg/m2 04/27/2003 BP Systolic 138 mmHg BP Diastolic 88 mmHg Heart Rate 100 /min Height 75.5 inches 6'3.50" Weight 199.00 lb BMI (Body Mass Index) 24.5 kg/m2 11/16/2002 BP Systolic 130 mmHg BP Diastolic 82 mmHg Heart Rate 80 /min Height 75.5 inches 6'3.50" Weight 198.00 lb BMI (Body Mass Index) 24.7 kg/m2 07/14/2002 BP Systolic 114 mmHg BP Diastolic 84 mmHg Heart Rate 76 /min Height 75.5 inches 6'3.50" Weight 198.00 lb BMI (Body Mass Index) 24.7 kg/m2 01/22/2002 BP Systolic 132 mmHg BP Diastolic 76 mmHg Heart Rate 80 /min Height 75.5 inches 6'3.50" Weight 208.00 lb BMI (Body Mass Index) 26.0 kg/m2 02/13/2001 BP Systolic 128 mmHg BP Diastolic 78 mmHg Heart Rate 100 /min Height 75.5 inches 6'3.50" Weight 203.00 lb BMI (Body Mass Index) 25.4 kg/m2 Results Test Date Test Result H/L Range Note Lipid Profile 07/31/2017 Cholesterol 163 mg/dL 120-200 Triglycerides 175 mg/dL 30-200 HDL Cholesterol 59 mg/dL 30-70 LDL (Calculated) 69 CALC 0-129 VLDL Cholesterol 35 mg/dL 0-50 HDL Risk Factor 2.8 CALC 0.0-4.4 Comprehensive Metabolic Prof 07/31/2017 Sodium 138 mEq/L 134-149 Potassium 3.7 mEq/L 3.6-5.5 Chloride 99 mEq/L 94-112 Carbon Dioxide 23 mEq/L 21-32 Glucose 102 mg/dL 70-105 BUN 11 mg/dL 6-26 Creatinine 0.9 mg/dL 0.6-1.4 BUN/Creat Ratio 12.2 CALC 8.0-36.0 Calcium 8.8 mg/dL 8.6-10.2 Total Protein 6.8 g/dL 6.4-8.3 Albumin 4.3 g/dL 3.8-5.5 Globulin 2.5 g/dL 2.0-4.8 A/G Ratio 1.7 CALC 0.6-2.3 Alk. Phosphatase 86 U/L 22-95 Alt (SGPT) 20 U/L 7-35 Ast (Sgot) 29 U/L 5-34 Total Bilirubin 0.7 mg/dL 0.2-1.3 GFR Non- >60 ml/min/1.73m^ >=60 GFR >60 ml/min/1.73m^ >=60 Laboratory test finding 07/31/2017 TSH 3.92 mIU/L 0.50-6.00 PSA 0.4 ng/mL 0.0-4.0 Laboratory test finding 07/31/2017 HCV AB non-reactive non-reactive CBC Auto Diff 06/13/2017 White Blood Count 9.0 10^3/uL 3.5-10.8 Red Blood Count 4.98 10^6/uL 4.0-5.4 Hemoglobin 15.9 g/dL 14.0-18.0 Hematocrit 47 % 42-52 Mean Corpuscular Volume 94 fL 80-94 Mean Corpuscular Hemoglobin 32 pg High 27-31 Mean Corpuscular HGB Conc 34 g/dL 31-36 Red Cell Distribution Width 13 % 10.5-15 Platelet Count 249 10^3/uL 150-450 Mean Platelet Volume 8 um3 7.4-10.4 Abs Neutrophils 6.6 10^3/uL 1.5-7.7 Abs Lymphocytes 1.6 10^3/uL 1.0-4.8 Abs Monocytes 0.7 10^3/uL 0-0.8 Abs Eosinophils 0 10^3/uL 0-0.6 Abs Basophils 0.1 10^3/uL 0-0.2 Abs Nucleated RBC 0 10^3/uL Granulocyte % 72.9 % 38-83 Lymphocyte % 17.7 % Low 25-47 Monocyte % 8.2 % 1-9 Eosinophil % 0.5 % 0-6 Basophil % 0.7 % 0-2 Nucleated Red Blood Cells % 0 Inr/Protime 06/13/2017 Inr 0.86 Low 0.89-1.11 Laboratory test finding 06/13/2017 Partial Thrombo Time 30.2 seconds 26.0 -36.3 PTT Comp Metabolic Panel 06/13/2017 Sodium 131 mmol/L Low 133-145 Potassium 3.7 mmol/L 3.5-5.0 Chloride 95 mmol/L Low 101-111 Co2 Carbon Dioxide 23 mmol/L 22-32 Anion Gap 13 mmol/L High 2-11 Glucose 104 mg/dL High 70-100 Blood Urea Nitrogen 9 mg/dL 6-24 Creatinine 0.82 mg/dL 0.67-1.17 BUN/Creatinine Ratio 11.0 8-20 Calcium 9.8 mg/dL 8.6-10.3 Total Protein 7.7 g/dL 6.4-8.9 Albumin 4.2 g/dL 3.2-5.2 Globulin 3.5 g/dL 2-4 Albumin/Globulin Ratio 1.2 1-3 Total Bilirubin 0.70 mg/dL 0.2-1.0 Alkaline Phosphatase 66 U/L 34-104 Alt 15 U/L 7-52 Ast 20 U/L 13-39 Egfr Non- 98.7 >60 Egfr 126.9 >60 1 Laboratory test finding 06/12/2017 Rapid Strep Molecular Negative Negative 2 Lyme Western Blot 12/09/2016 Lyme Disease IgG Ab WB Positive Negative 3 Lyme Disease IgG Bands Present See Comment kDa 3, 4 Lyme Disease IgM Ab WB Positive Negative 3 Lyme Disease IgM Bands Present p41, p23, kDa 3 Lyme Disease Interpretation See Comment 3, 5 Tick-Borne Panel PCR Blood 12/09/2016 Babesia microti PCR Negative Negative 3 Babesia ducani Negative Negative 3 Babesia divergens/Mo-1 Negative Negative 3, 6 Anaplasma phagocytophilum Negative Negative 3 Ehrlichia chaffeensis Negative Negative 3 Ehrlichia ewingii/canis Negative Negative 3 Ehrlichia muris-like Negative Negative 3, 7 B. miyamotoi PCR, B Negative Negative 3, 8 Laboratory test finding 12/09/2016 Erythrocyte Sed Rate 24 mm/Hr High 0- 20 3, 9 Lyme Disease Serology Positive Negative 3, 10 CBC Auto Diff 12/09/2016 White Blood Count 8.4 10^3/uL 3.5-10.8 3 Red Blood Count 5.00 10^6/uL 4.0-5.4 3 Hemoglobin 15.8 g/dL 14.0-18.0 3 Hematocrit 46 % 42-52 3 Mean Corpuscular Volume 93 fL 80-94 3 Mean Corpuscular Hemoglobin 32 pg High 27-31 3 Mean Corpuscular HGB Conc 34 g/dL 31-36 3 Red Cell Distribution Width 12 % 10.5-15 3 Platelet Count 210 10^3/uL 150-450 3 Mean Platelet Volume 9 um3 7.4-10.4 3 Abs Neutrophils 5.9 10^3/uL 1.5-7.7 3 Abs Lymphocytes 1.6 10^3/uL 1.0-4.8 3 Abs Monocytes 0.8 10^3/uL 0-0.8 3 Abs Eosinophils 0.1 10^3/uL 0-0.6 3 Abs Basophils 0.1 10^3/uL 0-0.2 3 Abs Nucleated RBC 0 10^3/uL 3 Granulocyte % 69.3 % 38-83 3 Lymphocyte % 19.5 % Low 25-47 3 Monocyte % 9.7 % High 1-9 3 Eosinophil % 0.8 % 0-6 3 Basophil % 0.7 % 0-2 3 Nucleated Red Blood Cells % 0 3 Laboratory test finding 12/09/2016 C Reactive Protein 4.35 mg/L < 5.00 3 , 11 Laboratory test finding 07/23/2016 T3 Total 0.98 ng/mL 0.87-1.78 12, 13 Anti-Thyroid Antibodies 07/23/2016 Thyroperoxidase AB 0.26 IU/mL <9 12, 14 Screen Thyroglobulin AB <1.8 IU/mL <4.0 12, 15 Laboratory test finding 07/23/2016 Free T3 2.50 pg/mL 2.00-4.90 Total T3 Canceled By Lab 0.8-2.0 Complete Blood Count 07/23/2016 WBC 4.5 x10^3/UL 3.6-9.6 RBC 4.79 x10^6/UL 3.90-5.70 HGB 15.6 g/dL 12.1-17.2 HCT 46 % 36-50 MCV 95.0 fL 82.2-97.4 MCH 32.5 pg 27.6-33.3 MCHC 34.1 g/dL 33.0-35.5 RDW 13.5 % 11.6-13.7 PLT 208 x10^3/UL 150-400 MPV 7.9 fL 7.4-10.4 Gran # 3.2 x10^3/UL 1.5-7.2 Lymph# 1.1 x10^3/UL 0.7-4.9 [place]atch# 0.2 x10^3/UL 0.1-0.9 Gran % 69.0 % 42.2-75.2 Lymph % 25.9 % 20.5-51.1 Wasatch% 5.1 % 1.7-9.3 Laboratory test finding 07/23/2016 PSA 0.4 ng/mL 0.0-4.0 TSH 4.93 mIU/L 0.50-6.00 Free T4 0.95 ng/dL 0.75-1.54 Comprehensive Metabolic Prof 07/23/2016 Sodium 138 mEq/L 134-149 Potassium 4.6 mEq/L 3.6-5.5 Chloride 101 mEq/L 94-112 Carbon Dioxide 27 mEq/L 21-32 Glucose 107 mg/dL High 70-105 16 BUN 11 mg/dL 6-26 Creatinine 0.9 mg/dL 0.6-1.4 BUN/Creat Ratio 12.2 CALC 8.0-36.0 Calcium 9.0 mg/dL 8.6-10.2 Total Protein 6.9 g/dL 6.4-8.3 Albumin 4.3 g/dL 3.8-5.5 Globulin 2.6 g/dL 2.0-4.8 A/G Ratio 1.7 CALC 0.6-2.3 Alk. Phosphatase 76 U/L 22-95 Alt (SGPT) 20 U/L 7-35 Ast (Sgot) 32 U/L 5-34 Total Bilirubin 0.6 mg/dL 0.2-1.3 GFR Non- >60 ml/min/1.73m^ >=60 GFR >60 ml/min/1.73m^ >=60 Lipid Profile 07/23/2016 Cholesterol 158 mg/dL 120-200 Triglycerides 140 mg/dL 30-200 HDL Cholesterol 55 mg/dL 30-70 LDL (Calculated) 75 CALC 0-129 VLDL Cholesterol 28 mg/dL 0-50 HDL Risk Factor 2.9 CALC 0.0-4.4 Comprehensive Metabolic Prof 07/12/2015 Sodium 136 mEq/L 134-149 Potassium 3.7 mEq/L 3.6-5.5 Chloride 102 mEq/L 94-112 Carbon Dioxide 29 mEq/L 21-32 Glucose 111 mg/dL High 70-105 17 BUN 15 mg/dL 6-26 Creatinine 0.9 mg/dL 0.6-1.4 BUN/Creat Ratio 16.7 CALC 8.0-36.0 Calcium 8.9 mg/dL 8.6-10.2 Total Protein 7.2 g/dL 6.4-8.3 Albumin 4.5 g/dL 3.8-5.5 Globulin 2.7 g/dL 2.0-4.8 A/G Ratio 1.7 CALC 0.6-2.3 Alk. Phosphatase 69 U/L 22-95 Alt (SGPT) 19 U/L 7-35 Ast (Sgot) 21 U/L 5-34 Total Bilirubin 0.8 mg/dL 0.2-1.3 GFR Non- >60 ml/min/1.73m^ >=60 GFR >60 ml/min/1.73m^ >=60 Lipid Profile 07/12/2015 Cholesterol 179 mg/dL 120-200 Triglycerides 158 mg/dL 30-200 HDL Cholesterol 61 mg/dL 30-70 LDL (Calculated) 86 CALC 0-129 VLDL Cholesterol 32 mg/dL 0-50 HDL Risk Factor 2.9 CALC 0.0-4.4 Comprehensive Metabolic Prof 04/15/2015 Sodium 136 mEq/L 134-149 Potassium 4.3 mEq/L 3.6-5.5 Chloride 98 mEq/L 94-112 Carbon Dioxide 21 mEq/L 21-32 Glucose 97 mg/dL 70-105 BUN 13 mg/dL 6-26 Creatinine 0.8 mg/dL 0.6-1.4 BUN/Creat Ratio 16.3 CALC 8.0-36.0 Calcium 9.2 mg/dL 8.6-10.2 Total Protein 7.9 g/dL 6.4-8.3 Albumin 4.4 g/dL 3.8-5.5 Globulin 3.5 g/dL 2.0-4.8 A/G Ratio 1.3 CALC 0.6-2.3 Alk. Phosphatase 69 U/L 22-95 Alt (SGPT) 38 U/L High 7-35 Ast (Sgot) 49 U/L High 5-34 Total Bilirubin 0.6 mg/dL 0.2-1.3 Lipid Profile 04/15/2015 Cholesterol 226 mg/dL High 120-200 Triglycerides 319 mg/dL High 30-200 HDL Cholesterol 54 mg/dL 30-70 LDL (Calculated) 108 CALC 0-129 VLDL Cholesterol 64 mg/dL High 0-50 HDL Risk Factor 4.2 CALC 0.0-4.4 Laboratory test finding 04/15/2015 TSH 4.57 mIU/L 0.50-6.00 18 LDL, Direct 118 mg/dL 0-130 Laboratory test 02/28/2015 TSH 14.89 mIU/L High 0.50-6.00 19 finding Laboratory test 02/19/2015 Troponin I 0.00 ng/mL <0.03 20, 21 finding Laboratory test 02/14/2015 Hemoglobin A1c 5.2 % 4.1-5.7 finding (Fma/CMC,CX) Comprehensive 02/14/2015 Sodium 142 mEq/L 134-149 Metabolic Prof Potassium 4.8 mEq/L 3.6-5.5 Chloride 102 mEq/L 94-112 Carbon Dioxide 27 mEq/L 21-32 Glucose 116 mg/dL High 70-105 22 BUN 13 mg/dL 6-26 Creatinine 0.9 mg/dL 0.6-1.4 BUN/Creat Ratio 14.4 CALC 8.0-36.0 Calcium 9.5 mg/dL 8.6-10.2 Total Protein 7.3 g/dL 6.4-8.3 Albumin 4.5 g/dL 3.8-5.5 Globulin 2.8 g/dL 2.0-4.8 A/G Ratio 1.6 CALC 0.6-2.3 Alk. Phosphatase 73 U/L 22-95 Alt (SGPT) 35 U/L 7-35 Ast (Sgot) 42 U/L High 5-34 23 Total Bilirubin 0.8 mg/dL 0.2-1.3 Lipid Profile 02/14/2015 Cholesterol 174 mg/dL 120-200 Triglycerides 161 mg/dL 30-200 HDL Cholesterol 57 mg/dL 30-70 LDL (Calculated) 85 CALC 0-129 VLDL Cholesterol 32 mg/dL 0-50 HDL Risk Factor 3.1 CALC 0.0-4.4 Laboratory test finding 02/14/2015 TSH 8.93 mIU/L High 0.50-6.00 24 Lipid Profile 09/01/2014 Cholesterol 277 mg/dL High 120-200 Triglycerides 704 mg/dL High 30-200 HDL Cholesterol 46 mg/dL 30-70 LDL (Calculated) 90 CALC 0-129 VLDL Cholesterol 141 mg/dL High 0-50 HDL Risk Factor 6.0 CALC High 0.0-4.4 Comprehensive Metabolic Prof 09/01/2014 Sodium 135 mEq/L 134-149 Potassium 4.7 mEq/L 3.6-5.5 Chloride 101 mEq/L 94-112 Carbon Dioxide 27 mEq/L 21-32 Glucose 107 mg/dL High 70-105 25 BUN 13 mg/dL 6-26 Creatinine 0.7 mg/dL 0.6-1.4 BUN/Creat Ratio 18.6 CALC 8.0-36.0 Calcium 9.4 mg/dL 8.6-10.2 Total Protein 8.1 g/dL 6.4-8.3 Albumin 4.3 g/dL 3.8-5.5 Globulin 3.8 g/dL 2.0-4.8 A/G Ratio 1.1 CALC 0.6-2.3 Alk. Phosphatase 81 U/L 22-95 Alt (SGPT) 15 U/L 7-35 Ast (Sgot) 25 U/L 5-34 Total Bilirubin 0.6 mg/dL 0.2-1.3 Laboratory test finding 09/01/2014 PSA 0.4 ng/mL 0.0-4.0 26 LDL, Direct 101 mg/dL 0-130 Comprehensive Metabolic Prof 05/25/2014 Sodium 140 mEq/L 134-149 Potassium 4.8 mEq/L 3.6-5.5 Chloride 112 mEq/L 94-112 Carbon Dioxide 25 mEq/L 21-32 Glucose 112 mg/dL High 70-105 27 BUN 13 mg/dL 6-26 Creatinine 1.0 mg/dL 0.6-1.4 BUN/Creat Ratio 13.0 CALC 8.0-36.0 Calcium 9.4 mg/dL 8.6-10.2 Total Protein 6.9 g/dL 6.3-8.1 Albumin 4.7 g/dL 3.8-5.5 Globulin 2.2 g/dL 2.0-4.8 A/G Ratio 2.1 CALC 0.6-2.3 Alk. Phosphatase 78 U/L 22-95 Alt (SGPT) 18 U/L 7-35 Ast (Sgot) 15 U/L 5-34 Total Bilirubin 0.5 mg/dL 0.2-1.3 Lipid Profile 05/25/2014 Cholesterol 238 mg/dL High 120-200 Triglycerides 245 mg/dL High 30-200 HDL Cholesterol 44 mg/dL 30-70 LDL (Calculated) 145 CALC High 0-129 VLDL Cholesterol 49 mg/dL 0-50 HDL Risk Factor 5.4 CALC High 0.0-4.4 Comprehensive Metabolic Prof 12/14/2013 Albumin 4.7 g/dL 3.8-5.5 Alk. Phos. 80 U/L 22-95 Alt (SGPT) 13 U/L 10-40 Ast (Sgot) 16 U/L 5-34 BUN 11 mg/dL 6-26 Calcium 9.6 mg/dL 8.6-10.2 Chloride 99 mEq/L 94-112 Creatinine 1.0 mg/dL 0.6-1.4 Carbon Dioxide 26 mEq/L 21-32 Glucose 111 mg/dL High 70-105 28 Sodium 140 mEq/L 134-149 Total Bilirubin 0.5 mg/dL 0.2-1.3 Total Protein 7.1 g/dL 6.3-8.1 Potassium 4.5 mEq/L 3.6-5.5 Globulin 2.3 g/dL 2.0-4.8 A/G Ratio 2.0 Calc 0.6-2.3 BUN/Creat Ratio 10.6 Calc 8.0-36.0 Lipid Profile 12/14/2013 Cholesterol 230 mg/dL High 120-200 HDL 42 mg/dL 30-70 Triglycerides 317 mg/dL High 30-200 HDL Risk Factor 5.5 CALC High 0.0-4.4 LDL (Calculated) 125 CALC 0-129 VLDL (Calculated) 63 mg/dL High 0-50 Laboratory test finding 12/14/2013 B12 509 pg/mL 230-1050 LDL (Direct) 115 mg/dL 0-130 Laboratory test finding 10/01/2013 Methylmalonic Acid 0.61 nmol/mL <= 0.40 29 Ua - Non Micro (Fma) 08/25/2013 Appearance CLEAR Color YELLOW Glucose, Urine (Fma/CMC/CTX) - Bilirubin - Ketones - SP Grav 1.025 Blood - PH 5.5 Protein - Urobil 0.2 Nitrite - Leukocytes ([facility]ma/CMC/[facility]) - Lipid Profile 08/25/2013 Cholesterol 263 mg/dL High 120-200 HDL 44 mg/dL 30-70 Triglycerides 220 mg/dL High 30-200 HDL Risk Factor 6.0 CALC High 0.0-4.4 LDL (Calculated) 175 CALC High 0-129 VLDL (Calculated) 44 mg/dL 0-50 Comprehensive Metabolic Prof 08/25/2013 Albumin 4.7 g/dL 3.8-5.5 Alk. Phos. 86 U/L 22-95 Alt (SGPT) 12 U/L 10-40 Ast (Sgot) 21 U/L 5-34 BUN 17 mg/dL 6-26 Calcium 8.9 mg/dL 8.6-10.2 Chloride 104 mEq/L 94-112 Creatinine 1.0 mg/dL 0.6-1.4 Carbon Dioxide 26 mEq/L 21-32 Glucose 106 mg/dL High 70-105 30 Sodium 140 mEq/L 134-149 Total Bilirubin 0.5 mg/dL 0.2-1.3 Total Protein 7.5 g/dL 6.3-8.1 Potassium 4.9 mEq/L 3.6-5.5 Globulin 2.8 g/dL 2.0-4.8 A/G Ratio 1.7 Calc 0.6-2.3 BUN/Creat Ratio 17.6 Calc 8.0-36.0 Laboratory test finding 08/25/2013 B12 147 pg/mL Low 230-1050 31 CBC Electronic (Fma) 08/25/2013 WBC 5.3 3.6-9.6 RBC 4.66 3.90-5.70 Hemoglobin (Fma/CMC/CTX) 14.9 g/dL 12.1 - 17.2 Hematocrit (Fma/CMC/CTX) 43.7 % 36.1 - 50.3 Platelets 313 10^3/ul 150-400 Lymph% 25.9 20.5-51.1 Mixed% 4.1 Neutrophils % 70.0 Mean Corpuscular Vol 94 82.2-97.4 Mean Corpuscular Hemoglobin 31.9 27.6-33.3 Mean Corpuscular Hemo Concen 34.0 32.0-36.0 RDW 12.4 11.6-13.7 Mean Platelet Volume 7.4 6.5-11.0 Laboratory test finding 08/25/2013 Homocysteine 16 mcmol/L 32 Laboratory test finding 08/12/2011 Monospot NEGATIVE Negative Sharifa Feng Comprehensive 08/12/2011 Ebv Vca Igg Positive Negative Ebv Vca Igm Negative Negative Ebna Positive Negative Ebv Interpretation SEE BELOW () 33 Throat-Beta Strept 08/12/2011 Throat-Beta Strep Culture NF 34 Lyme Igg/M W/RFX West 07/12/2011 Lyme IgG/IgM Ab <0.91 index 0.00-0.90 35 Lyme Disease Ab, Quant, IgM <0.91 index 0.00-0.90 36 Laboratory test finding 07/05/2011 TSH 3.50 mIU/L 0.50-6.00 Comprehensive Metabolic Prof 07/05/2011 Albumin 5.0 g/dL 3.8-5.5 Alk. Phos. 93 U/L 22-95 Alt (SGPT) 22 U/L 10-40 Ast (Sgot) 19 U/L 5-34 BUN 16 mg/dL 6-26 Calcium 9.5 mg/dL 8.6-10.2 Chloride 104 mEq/L 94-112 Creatinine 1.0 mg/dL 0.6-1.4 Carbon Dioxide 24 mEq/L 21-32 Glucose 97 mg/dL 70-105 Sodium 142 mEq/L 134-149 Total Bilirubin 0.3 mg/dL 0.2-1.3 Total Protein 7.4 g/dL 6.3-8.1 Potassium 5.0 mEq/L 3.6-5.5 Globulin 2.5 g/dL 2.0-4.8 A/G Ratio 2.0 Calc 0.6-2.2 BUN/Creat Ratio 15.4 Calc 8.0-36.0 Laboratory test finding 07/05/2011 Gamma gt 22 U/L 5-71 37 CBC Electronic (a) 07/05/2011 WBC 9.6 3.6-9.6 RBC 5.10 3.90-5.70 Hemoglobin (Fma/CMC/CTX) 16.8 g/dL 12.1 - 17.2 Hematocrit (Fma/CMC/CTX) 48.1 % 36.1 - 50.3 Platelets 267 10^3/ul 150-400 Lymph% 25.7 20.5-51.1 Mixed% 6.6 Neutrophils % 67.7 Mean Corpuscular Vol 94.3 82.2-97.4 Mean Corpuscular Hemoglobin 32.9 27.6-33.3 Mean Corpuscular Hemo Concen 34.9 32.0-36.0 RDW 12.2 11.6-13.7 Mean Platelet Volume 11.0 6.5-11.0 Lipid Profile 07/05/2010 Cholesterol 192 mg/dL 120-200 HDL 40 mg/dL 30-70 Triglycerides 175 mg/dL 30-200 HDL Risk Factor 4.8 CALC 4.2-7.0 LDL (Calculated) 117 CALC 0-129 VLDL (Calculated) 35 mg/dL 0-50 Comprehensive Metabolic Prof 07/05/2010 Albumin 4.6 g/dL 3.8-5.5 Alk. Phos. 76 U/L 22-95 Alt (SGPT) 12 U/L 10-40 Ast (Sgot) 15 U/L 5-34 BUN 15 mg/dL 6-26 Calcium 9.2 mg/dL 8.6-10.2 Chloride 99 mEq/L 94-112 Creatinine 1.0 mg/dL 0.6-1.4 Carbon Dioxide 26 mEq/L 21-32 Glucose 101 mg/dL 70-105 Sodium 137 mEq/L 134-149 Total Bilirubin 0.5 mg/dL 0.2-1.3 Total Protein 7.1 g/dL 6.3-8.1 Potassium 4.2 mEq/L 3.6-5.5 Globulin 2.5 g/dL 2.0-4.8 A/G Ratio 1.9 Calc 0.6-2.2 BUN/Creat Ratio 14.6 Calc 8.0-36.0 Lipid Profile 07/09/2009 Cholesterol 145 mg/dL 120-200 38 HDL 39 mg/dL 30-70 38 Triglycerides 60 mg/dL 30-200 38 HDL Risk Factor 3.7 CALC Low 4.2-7.0 38 LDL (Calculated) 94 CALC 0-129 38 VLDL (Calculated) 12 mg/dL 0-50 38 Comprehensive Metabolic Prof 07/09/2009 Albumin 4.6 g/dL 3.8-5.5 38 Alk. Phos. 84 U/L 22-95 38 Alt (SGPT) 26 U/L 10-40 38 Ast (Sgot) 29 U/L 5-34 38 BUN 20 mg/dL 6-26 38 Calcium 9.1 mg/dL 8.6-10.2 38 Chloride 98 mEq/L 94-112 38 Creatinine 0.9 mg/dL 0.6-1.4 38 Carbon Dioxide 28 mEq/L 21-32 38 Glucose 91 mg/dL 70-105 38 Sodium 140 mEq/L 134-149 38 Total Bilirubin 0.4 mg/dL 0.2-1.3 38 Total Protein 6.8 g/dL 6.3-8.1 38 Potassium 4.9 mEq/L 3.6-5.5 38 Globulin 2.2 g/dL 2.0-4.8 38 A/G Ratio 2.0 Calc 0.6-2.2 38 BUN/Creat Ratio 21.7 Calc 8.0-36.0 38 Laboratory test finding 07/09/2009 TSH 2.45 mIU/L 0.50-6.00 38 CBC (Fma) 07/09/2009 WBC 6.7 3.6-9.6 RBC 4.85 3.90-5.70 Hemoglobin (Fma/CMC/CTX) 15.1 g/dL 12.1 - 17.2 Hematocrit (Fma/CMC/CTX) 45.8 % 36.1 - 50.3 Mean Corpuscular Vol 94.4 82.2-97.4 Mean Corpuscular Hemaglobin 31.1 27.6-33.3 Mean Corpuscular Hemo Concen 33.0 33.0-36.0 Platelets 285 10^3/ul 150-400 Lymph% 25.7 20.5-51.1 Mixed% 6.1 Neutrophils % 68.2 RDW 12.5 11.6-13.7 Mean Platelet Volume 10.2 7.4-10.4 Laboratory test finding 07/09/2009 C-Reactive Protein 0.3 mg/dL 0.0-0.5 39 Comp Stat 12/28/2008 Sodium 138 mmol/L 135-145 40 Potassium 3.6 mmol/L 3.5-5.0 40 Chloride 101 mmol/L 101-111 40 Co2 (Carbon Dioxide) 31.0 mmol/L 22-32 40 Anion Gap 6.0 mmol/L 2-11 40, 41 Glucose 117 mg/dL High 70-100 40, 42 BUN 13 mg/dL 6-24 40 Creatinine 0.87 mg/dL 0.50-1.40 40 One Over Creatinine 1.10 40 BUN/Creatinine Ratio 14.9 8-20 40 Calcium 10.1 mg/dL High 8.1-9.9 40, 43 Total Protein 7.5 GM/DL 6.2-8.1 40 Albumin 4.3 GM/DL 3.6-5.4 40 Globulin 3.2 GM/DL 2-4 40 Albumin/Globulin Ratio 1.3 1-3 40 Bilirubin Total 1.2 mg/dL 0.4-1.5 40 Alkaline Phosphatase 81 U/L 39-117 40 Alt (SGPT) 14 U/L Low 17-63 40 Ast (Sgot) 20 U/L 12-42 40 Laboratory test 12/28/2008 Troponin-I (TnI) 0.05 NG/ML 0-0.06 40, 44 finding Laboratory test 11/23/2008 [facility] URINE CULTURE See Image finding Report Laboratory test 09/29/2008 [facility] FSH;LH;PROLACTI See Image finding N; Report Laboratory test 09/07/2008 PSA 0.40 ng/mL 0.00-4.00 finding Ua - Micro (Fma) 09/07/2008 Appearance clear Color yellow Glucose - Bilirubin small Ketones 15mg/dl SP Grav >=1.030 Blood - PH 5.5 Protein - Urobil 0.2eu/dl Nitrite - Leukocytes (Fma/CMC/[facility]) - Hyaline - /Lpf Granular - /Lpf WBC (Fma,[facility]) 2-4 RBC 0-1 Mucus mod amt /Lpf Epith few /Lpf Bacteria rare /Hpf Amorphous - /Lpf Crystals, Fluid (Fma/CMC/CTX) - Z#Comments - Laboratory test 09/07/2008 Testosterone, Total 718.8 ng/dL 241.0-827.0 finding Lipid Profile 06/05/2008 Cholesterol 212 mg/dL High 120-200 45 HDL 33 mg/dL 30-70 45 Triglycerides 203 mg/dL High 30-200 45 HDL Risk Factor 6.4 CALC 4.2-7.0 45 LDL (Calculated) 138 CALC High 0-129 45 VLDL (Calculated) 41 mg/dL 0-50 45 Comprehensive Metabolic Prof 06/05/2008 Albumin 4.3 g/dL 3.8-5.5 45 Alk. Phos. 90 U/L 22-95 45 Alt (SGPT) 20 U/L 10-40 45 Ast (Sgot) 28 U/L 5-34 45 BUN 21 mg/dL 6-26 45 Calcium 8.9 mg/dL 8.6-10.2 45 Chloride 102 mEq/L 94-112 45 Creatinine 1.1 mg/dL 0.6-1.4 45 Carbon Dioxide 27 mEq/L 21-32 45 Glucose 104 mg/dL 70-105 45 Sodium 137 mEq/L 134-149 45 Total Bilirubin 0.3 mg/dL 0.2-1.3 45 Total Protein 6.8 g/dL 6.3-8.1 45 Potassium 4.4 mEq/L 3.6-5.5 45 Globulin 2.4 g/dL 2.0-4.8 45 A/G Ratio 1.8 Calc 0.6-2.2 45 BUN/Creat Ratio 19.8 Calc 8.0-36.0 45 Comprehensive Metabolic 05/05/2007 Glucose 93 mg/dL 70-100 46 BUN 17 mg/dL 5-21 46 Creatinine, Serum 1.3 mg/dL 0.6-1.5 46 Sodium 142 mmol/L 136-146 46 Potassium 5.6 mmol/L High 3.5-5.3 46 Chloride 106 mmol/L 98-110 46 Carbon Dioxide 25 mmol/L 20-32 46 Albumin 4.6 g/dL 3.5-4.7 46 Protein, Total 7.4 g/dL 6.4-8.2 46 Calcium 9.4 mg/dL 8.4-10.4 46 Alkaline Phosphatase 78 U/L 10-118 46 Sgot (Ast) 23 U/L 3-40 46 SGPT (Alt) 15 U/L 7-50 46 Bilirubin, Total 0.70 mg/dL 0.30-1.20 46 Laboratory test finding 05/05/2007 GFR (Calculated) >60 46, 47 Lipid Profile 05/05/2007 Cholesterol, Total 163 mg/dL 120-200 46, 48 HDL Cholesterol 40 mg/dL 40-60 46 LDL Cholesterol, Calc. 81 mg/dL <130 46, 49 Triglycerides 208 mg/dL 46, 50 LDL/HDL Cholesterol 2.0 46, 51 Chol/HDL Cholesterol 4.1 46, 52 Lipid Panel-ALL Lab 10/29/2006 Cholesterol (Fma/CMC/[facility]) 168 mg/dL 120-200 Companies HDL-Chol 30 mg/dL 30-70 Triglyceride 155 mg/dL 30-200 LDL/HDL Chol. Ratio (F/C/CTX) - Chol./HDL Ratio (Fma/CMC/CTX) - Low 30-85 LDL, Calculated ([facility]) 106 mg/dL 0-129 HDL Risk Factor (Fma) 5.5 CALC 4.2-7.0 Liver Profile-ALL Lab Companie 10/29/2006 Albumin (Fma/CMCC/[facility]) 4.6 3.8-5.5 Total Protein 7.3 g/dL 6.3-8.1 Alkaline Phosphatase (F/C/CTX) 81 U/L 30-110 Ast (Sgot) (a/CMC/[facility]) 18 U/mL 5-34 Alt (SGPT) (CMC/[facility]) 19 10-40 Bilirubin, Total 0.6 mg/dL 0.2-1.3 Bilirubin, Direct 0.2 mg/dL 0-0.6 Bilirubin, Indirect 0.43 ml/dl 0.10-1.0 Laboratory test finding 04/05/2006 PSA (a/[facility]) 0.43 0.0-4.0 Lyme Igg/M W/Reflx West 02/12/2006 Lyme IgG/IgM Ab <0.91 index 0.00-0.90 53 Lyme Ab Interp.,Eia DNR Lyme Ab Interp.,Eia DNR Lyme Disease Ab, Quant, IgM <0.91 index 0.00-0.90 54 Lyme Ab IgM Interp., Eia DNR Lyme Ab IgM Interp., Eia DNR Laboratory test finding 02/12/2006 B12 (a/CMC/[facility]) 236 pg/mL 230- 1050 Folic Acid (a/CMC/[facility]) 20.79 NG/ML High 3.00-16.00 Immunoelectrophor.Serum 02/12/2006 Protein, Total 7.1 g/dL 6.4-8.2 Protein, Total 7.1 g/dL 6.4-8.2 Immunoglobulin G (Igg) 773.0 mg/dL Low 800.0-1700.0 Immunoglobulin A (Iga) 333.0 mg/dL 100.0-490.0 Immunoglobulin M (Igm) 82.3 mg/dL 50.0-320.0 Immunofixation, Serum NORMAL Latoya Interp., Serum * 55 Albumin 4.6 3.2-5.6 Alpha 1 Globulin, Serum 0.2 g/dL 0.1-0.4 Alpha 2 Globulin, Serum 0.8 g/dL 0.4-1.2 Beta Globulin, Serum 0.9 g/dL 0.6-1.3 Gamma Globulin 0.6 g/dL 0.5-1.6 Globulin,Total 2.5 g/dL 2.0-4.5 A/G Ratio 1.8 0.7-2.0 Interpretation, Serum * 56 Laboratory test finding 02/12/2006 RPR NON-REACTIVE Non-Reactive Liver Function (a) 01/29/2006 Total Protein 7.3 g/dL 6.3-8.1 Albumin ([facility]) 4.5 3.8-5.5 A/G Ratio ([facility]) 1.6 0.6-2.2 Globulin 2.8 2.0-4.8 Alkaline Phosphatase (F/C/CTX) 92 U/L 30-110 Alt (SGPT) ([facility]) 21 10-40 Ast (Sgot) ([facility]) 18 U/mL 5-34 Bilirubin, Total 0.7 mg/dL 0.2-1.3 Bilirubin, Direct 0.1 mg/dL 0-0.6 Bilirubin, Indirect 0.55 ml/dl 0.10-1.0 Lipid Profile([facility]) Male 01/29/2006 Cholesterol 157 mg/dL 120-200 Triglyceride 166 mg/dL 30-200 HDL Cholesterol (a) Male 27 mg/dL Low 30-70 57 LDL, Calculated ([facility]) 97 CALC 0-129 LDL Direct ([facility]) - mg/dL 0-130 VLDL 33 0-50 HDL Risk Factor ([facility]) 5.9 CALC 4.2-7.0 Laboratory test finding 01/29/2006 Venipuncture - Laboratory test finding 12/04/2005 TSH ([facility]) 2.97 uIU/ml 0.5- 6.0 Laboratory test finding 12/04/2005 Testosterone, Total 506.7 ng/dL 241.0- 827.0 58 Liver Function (a) 07/26/2005 Total Protein 7.0 g/dL 6.3-8.1 Albumin ([facility]) 4.4 3.8-5.5 A/G Ratio ([facility]) 1.7 0.6-2.2 Globulin 2.6 2.0-4.8 Alkaline Phosphatase (F/C/CTX) 69 U/L 22-95 Alt (SGPT) ([facility]) 24 10-40 Ast (Sgot) ([facility]) 21 U/mL 5-34 Bilirubin, Total 0.6 mg/dL 0.2-1.3 Bilirubin, Direct 0.2 mg/dL 0-0.6 Bilirubin, Indirect 0.31 ml/dl 0.10-1.0 Lipid Profile([facility]) Male 07/26/2005 Cholesterol 163 mg/dL 120-200 Triglyceride 150 mg/dL 30-200 HDL Cholesterol ([facility]) Male 35 mg/dL 30-70 LDL, Calculated ([facility]) 99 CALC 0-129 LDL Direct ([facility]) - mg/dL 0-130 VLDL 30 0-50 HDL Risk Factor ([facility]) 4.7 CALC 4.2-7.0 Liver Function ([facility]) 09/19/2004 Total Protein 7.2 g/dL 6.3-8.1 Albumin ([facility]) 4.6 3.8-5.5 A/G Ratio ([facility]) 1.7 0.6-2.2 Globulin 2.6 2.0-4.8 Alkaline Phosphatase (F/C/CTX) 80 U/L 30-110 Alt (SGPT) 27 7-35 Ast (Sgot) ([facility]) 28 U/mL 5-34 Bilirubin, Total 0.5 mg/dL 0.2-1.3 Bilirubin, Direct 0.3 mg/dL 0-0.6 Bilirubin, Indirect 0.16 ml/dl 0.10-1.0 Lipid Profile([facility]) Male 09/19/2004 Cholesterol 173 mg/dL 120-200 Triglyceride 174 mg/dL 30-200 HDL Cholesterol (a) Male 37 mg/dL 30-70 LDL, Calculated (a/CMC) 102 CALC 0-129 LDL, Direct - mg/dL 0-130 VLDL 35 0-50 HDL Risk Factor (Fma) 4.7 CALC 4.2-7.0 Comp Metabolic ([facility]) 03/06/2004 Glucose, Serum (Fma/CMC/CTX) 83 mg/dL 70- 118 BUN (Fma/[facility]) 10 mg/dL 6-26 Creatinine (Fma/CMC/CTX) 0.7 mg/dL 0.6-1.4 BUN/Creatinin Ratio 15.7 8.0-36 Sodium 140 134-149 Potassium 4.5 3.6-5.5 Chloride 98 mEq/L 94-112 Co2 28 21-32 Calcium (Fma/[facility]) 9.1 mg/dL 8.6-10.0 Total Protein 7.1 g/dL 6.3-8.1 Albumin (a/[facility]) 4.7 3.8-5.5 Globulin 2.3 2.0-4.8 A/G Ratio (a/CMC) 2.0 0.6-2.2 Alkaline Phosphatase (F/C/CTX) 63 U/L 22-95 Alt (SGPT) (a/[facility]) 22 10-40 Ast (Sgot) (a/[facility]) 22 U/mL 5-34 Bilirubin, Total 0.8 mg/dL 0.2-1.3 Lipid Profile ([facility]) 03/06/2004 Cholesterol ([facility]) 186 mg/dL 120-200 Triglyceride 130 mg/dL 30-200 HDL-Chol 45 30-70 LDL, Calculated (a/CMC) 116 CALC 0-129 VLDL 26 0-50 HDL Risk Factor (Fma) 4.2 CALC 4.2-7.0 Laboratory test finding 03/06/2004 TSH (a/[facility]) 5.25 uIU/ml 0.5- 6.0 CBC Electronic ([facility]) 03/06/2004 WBC 7.1 3.6-9.6 Lymphocytes 22.7 % 20.5 - 51.1 Monocytes 1.8 % 1.7-9.3 Granulocytes 75.5 % High 42.2 - 75.2 Lymphocytes 1.6 10^3/uL 0.7 - 4.9 Monocytes 0.1 10^3/uL 0.1 - 0.9 Granulocytes 5.4 10^3/uL 1.5 - 7.2 RBC 5.01 3.90-5.70 Hemoglobin (Fma/CMC/CTX) 15.2 g/dL 12.1 - 17.2 Hematocrit (a/[facility]/CTX) 45.5 % 36.1 - 50.3 Mean Corpuscular Vol 90.9 82.2-97.4 Mean Corpuscular Hemaglobin 30.3 27.6-33.3 Mean Corpuscular Hemo Concen 33.3 33.0-35.5 RDW 12.5 11.6-13.7 Platelets 270 10^3/ul 150-400 Mean Platelet Volume 7.5 7.4-10.4 Ua - Non Micro ([facility]) 03/06/2004 Appearance CLEAR Color YELLOW Glucose, Urine (a/[facility]/CTX) NEGATIVE Bilirubin ICTO: NEGATIVE Ketones 2+ SP Grav >=1.030 Blood NEGATIVE PH 5.0 Protein NEGATIVE Urobil 0.2 E.U./dL Nitrite NEGATIVE Leukocytes ([facility]) NEGATIVE Laboratory test finding 09/07/2003 Flu A&B NEGATIVE Negative Liver Function ([facility]) 04/30/2003 Total Protein 7.4 g/dL 6.3-8.1 Albumin (a/[facility]) 4.9 3.8-5.5 A/G Ratio ([facility]) 1.9 0.6-2.2 Globulin 2.5 2.0-4.8 Alkaline Phosphatase (F/C/CTX) 83 U/L 30-110 Alt (SGPT) (a/[facility]) 32 10-40 Ast (Sgot) (a/[facility]) 27 U/mL 5-34 Bilirubin, Total 0.7 mg/dL 0.2-1.3 Bilirubin, Direct 0.3 mg/dL 0-0.6 Bilirubin, Indirect 0.47 ml/dl 0.10-1.0 Lipid Profile ([facility]) 04/30/2003 Cholesterol ([facility]) 191 mg/dL 120-200 Triglyceride 136 mg/dL 30-200 HDL-Chol 38 30-85 LDL, Calculated ([facility]) 126 CALC 0-129 VLDL 27 0-50 HDL Risk Factor ([facility]ma) 5.0 CALC 4.2-7.0 Laboratory test finding 04/30/2003 Creatine Kinase, Total 133 U/L 26-140 Laboratory test finding 04/27/2003 Aldolase, Serum 5.1 U/L 1.2-7.6 Lipid Profile (a) 11/16/2002 Cholesterol 189 mg/dL 140-200 Triglyceride 156 mg/dL High 30-150 VLDL 31 0-50 LDL-Calculated 101 0-160 HDL-Chol 57 30-70 Liver Function (a) 11/16/2002 Albumin ([facility]) 5.0 3.8-5.5 Alkaline Phosphatase 83 U/L 22-95 Bilirubin, Direct 0.2 mg/dL 0-0.6 Bilirubin, Total 1.0 mg/dL 0.2-1.3 Ast (Sgot) 25 5-40 Alt (SGPT) 28 10-40 Total Protein 7.6 g/dL 6.4-8.3 Bilirubin, Indirect 0.80 ml/dl 0.10-1.0 Lipid Profile ([facility]) 07/14/2002 Cholesterol 219 mg/dL High 140-200 Triglyceride 261 mg/dL High 30-150 VLDL 52 High 0-50 LDL-Calculated INVALID 0-160 HDL-Chol 49 35-85 Laboratory test finding 07/14/2002 LDL, Direct 133.4 mg/dL High 0-130 Comp Metabolic (a) 01/26/2002 Albumin 4.5 3.8-5.5 Alkaline Phosphatase 70 U/L 22-95 Bilirubin, Total 0.9 mg/dL 0.2-1.3 BUN 15 7-26 Calcium 8.9 mg/dL 8.6-10.0 Creatinine 0.8 mg/dL 0.6-1.4 Glucose 81 mg/dL 70 - 118 Ast Sgot 22 U/L 5-40 Alt (SGPT) 18 10-40 Total Protein 7.4 g/dL 6.4-8.3 Sodium 141 134-149 Potassium 4.0 3.6-5.5 Chloride 99 mEq/L 94-112 Co2 24 21-32 Globulin 2.9 2.0-4.8 Albumin / Globulin Ratio 1.6 0.6-2.2 BUN/Creatinin Ratio 18.8 8.0-36 Lipid Profile ([facility]ma) 01/26/2002 Cholesterol 216 mg/dL High 140-200 Triglyceride 226 mg/dL High 30-150 VLDL 45 0-50 LDL-Calculated 123 0-160 HDL-Chol 48 30-70 1 Because ethnic data is not always readily available, this report includes an eGFR for both -Americans and non- Americans. The National Kidney Disease Education Program (NKDEP) does not endorse the use of the MDRD equation for patients that are not between the ages of 18 and 70, are , have extremes of body size, muscle mass, or nutritional status, or are non- or non-. According to the National Kidney Foundation, irrespective of diagnosis, the stage of the disease is based on the level of kidney function: Stage Description GFR(mL/min/1.73 m(2)) 1 Kidney damage with normal or decreased GFR 90 2 Kidney damage with mild decrease in GFR 60-89 3 Moderate decrease in GFR 30-59 4 Severe decrease in GFR 15-29 5 Kidney failure <15 (or dialysis) 2 Spanish Linguist: [id number] RESULT: p45, p41, p39, p23, p18, 5 Consistent with active or previous infection for B. burgdorferi. IgM blot criteria is of diagnostic utility only during the first 4 weeks of early Lyme disease. ADDITIONAL INFORMATION CDC criteria require >=5 bands for IgG or >=2 bands for IgM for the Immunoblot to be considered positive. Bands (e.g.,p41) may be detected in patients without Lyme disease, and patterns not meeting the CDC criteria should be interpreted with caution. Immunoblot should be ordered only on specimens that are positive or equivocal by a FDA-licensed Lyme disease antibody screening test (e.g., EIA). Test Performed by: [address] [id number] Controller Instructor: Devaughn Andrade II, M.D., Ph.D. 6 ADDITIONAL INFORMATION This test was developed and its performance characteristics determined by [facility] in a manner consistent with CLIA requirements. This test has not been cleared or approved by the U.S. Food and Drug Administration. 7 ADDITIONAL INFORMATION This test was developed and its performance characteristics determined by [facility] in a manner consistent with CLIA requirements. This test has not been cleared or approved by the U.S. Food and Drug Administration. 8 ADDITIONAL INFORMATION This test was developed and its performance characteristics determined by [facility] in a manner consistent with CLIA requirements. This test has not been cleared or approved by the U.S. Food and Drug Administration. Test Performed by: [place] [address] Controller Instructor: Devaughn Andrade II, M.D., Ph.D. 9 [id number] 10 Not diagnostic. Supplemental testing ordered by reflex. Test Performed by: [place] [address] Controller Instructor: Devaughn Andrade II, M.D., Ph.D. 11 Acute inflammation: >10.00 12 [id number] 13 [id number] 14 [id number] 15 ADDITIONAL INFORMATION The thyroglobulin antibody testing method is an immunoenzymatic assay manufactured by [employer] and performed on the [employer] DXI 800. Values obtained from different assay methods or kits may be different and cannot be used interchangeably. The results cannot be interpreted as absolute evidence for the presence or absence of malignant disease. Test Performed by: [place] [address] Controller Instructor: Devaughn Andrade II, M.D., Ph.D. 16 NON-FASTING 17 RESULTS VERIFIED BY REPEAT ANALYSIS 18 FASTING 19 RESULTS VERIFIED BY REPEAT ANALYSIS 20 CALL STAT RESULTS TO DR PORTER [phone] 21 Reference Range and Interpretation: TnI (ng/mL) Interpretation Less Than 0.03 ng/mL Not supportive of diagnosis of SC 0.03 - 0.50 ng/mL Indeterminate: suggest serial studies if clinically indicated. Greater than 0.5 ng/mL Consistent with diagnosis of SC 22 RESULTS VERIFIED BY REPEAT ANALYSIS 23 RESULTS VERIFIED BY REPEAT ANALYSIS 24 RESULTS VERIFIED BY REPEAT ANALYSIS 25 RESULTS VERIFIED BY REPEAT ANALYSIS 26 FASTING 27 RESULTS VERIFIED BY REPEAT ANALYSIS 28 result sourav'd 29 In this sample, the concentration of methylmalonic acid (MMA) was elevated. This finding is likely related to vitamin B12 deficiency. Test Performed by: [place] [address] Controller Instructor: Jonathan Love III, M.D. 30 result sourav'd 31 result sourav'd 32 The homocysteine concentration is elevated in this sample. This finding is considered an independent risk factor of thromboembolic vascular disease and could be related to acquired folate or cobalamin deficiency underlying neurological disorders. An inborn error of methionine metabolism is a potential, but less likely, possibility for this result. Consider plasma methylmalonic acid analysis. -- REFERENCE VALUE -- <=13 (Fasting) Test Performed by: [place] [address] Controller Instructor: Jonathan Love III, M.D. 33 RESULT: Results suggest past infection In most populations, at least 90% of the adult population will have been infected with EBV sometime in the past and therefore, will be positive for anti-VCA/IgG and anti-EBNA. Antibodies to EBNA develop 6-8 weeks after primary infection and remain present for life. Presence of VCA/IgM antibodies indicates recent primary infection with EBV. Test Performed by: [facility] [address] [place] [id number] Controller Instructor: Jonathan Love III, M.D. 34 NEGATIVE FOR GROUP A BETA STREPTOCOCCUS 35 Negative <0.91 Equivocal 0.91 - 1.09 Positive >1.09 Note: The CDC currently advises that Western blot testing be performed following all equivocal or positive EIA results. Final diagnosis should include appropriate clinical findings and a positive EIA which is also positive by Western blot. 36 Negative <0.91 Equivocal 0.91 - 1.09 Positive >1.09 . Note: IgM levels may peak at 3-6 weeks post infection, then gradually decline. FDA currently advises that Western Blot testing be performed following all equivocal or positive EIA results. Final diagnosis should include appropriate clinical findings and a positive EIA which is also positive by Western Blot. 37 1 SST 38 FASTING 39 FASTING; 1-SST 40 STAT HOLD/CALL DR PEREZ AT [phone] spoke with lab - correct result is 0.05, not 0.07 - patient will go back to Emergency Room waiting area and add on a ck- mb LAD STAT HOLD/CALL DR PEREZ AT [phone] 41 Anion gap measurement may be of limited value in the presence of any alkalosis, especially in a combined acid base disorder. . 42 Note change in reference range as of 07/15/08. The change was based on recommendations from the [place] [employer]. 43 Please note change in reference range effective 08 . 44 RESULTS VERIFIED BY REPEAT ANALYSIS ON THE SAME SAMPLE. REPEATED RESULT IS:0.05 CORRECTED RESULT! WRONG RESULT WAS 0.07 New Reference Range and Interpretation effective 08/28/02 TnI (ng/ml) INTERPRETATION <0.06 ng/ml NOT SUPPORTIVE OF DIAGNOSIS OF SC 0.06 - 0.50 ng/ml INDETERMINATE: SUGGEST SERIAL STUDIES IF CLINICALLY INDICATED. > 0.5 ng/ml CONSISTENT WITH DIAGNOSIS OF SC . 45 FASTING 46 FASTING; 1 SST 47 mL/min/1.73m2 . Normal Function or Mild Renal Disease, if clinically at risk: >or=60 Moderately decreased: 30 - 59 Severely decreased: 15 - 29 Renal Failure: <15 . Please note that the MDRD equation requires an additional adjustment for -Americans (multiply the GFR result by 1.210). . Glomerular Filtration Rate (GFR) is estimated based on the MDRD equation, which assumes a steady state for creatinine (Lesley Int Med 139/2 137-149, 2003), as recommended by the National Kidney Disease Education Program in conjunction with the National Institutes of Health and the National Kidney Foundation. . Clinical conditions in which it may be necessary to measure GFR by using clearance methods include extremes of age and body size, severe malnutrition or obesity, diseases of skeletal muscle, paraplegia or quadriplegia, vegetarian diet, rapidly changing kidney function, and calculation of the dose of potentially toxic drugs that are excreted by the kidneys. . 48 Cholesterol Risk Levels (NIH) Recommended: under 200 mg/dl Borderline : 200-239 mg/dl High Risk : Above 240 mg/dl 49 The National Cholesterol Education Program recommends the following ranges for LDL Cholesterol: Optimal under 100 mg/dl Near or above Optimal 100 - 129 mg/dl Borderline High 130 - 159 mg/dl High 160 - 189 mg/dl Very High above 190 mg/dl 50 Triglyceride Risk Levels: Normal : <150 mg/dl Borderline : 150-199 mg/dl High : 200-499 mg/dl Very High : >500 mg/dl 51 LDL/HDL Risk Ratio Levels MALE FEMALE 1/2 X Average 1.00 1.47 Average 3.55 3.22 2 X Average 6.25 5.03 3 X Average 7.99 6.14 52 CHOL/HDL Risk Ratio Levels MALE FEMALE 1/2 X Average 3.4 3.3 Average 5.0 4.4 2 X Average 9.5 7.0 3 X Average 24.0 11.0 53 Negative <0.91 Equivocal 0.91 - 1.09 Positive >1.09 Note: The CDC currently advises that Western blot testing be performed following all equivocal or positive EIA results. Final diagnosis should include appropriate clinical findings and a positive EIA which is also positive by Western blot. 54 Negative <0.91 Equivocal 0.91 - 1.09 Positive >1.09 . Note: IgM levels may peak at 3-6 weeks post infection, then gradually decline. FDA currently advises that Western Blot testing be performed following all equivocal or positive EIA results. Final diagnosis should include appropriate clinical findings and a positive EIA which is also positive by Western Blot. 55 NO MONOCLONAL PARAPROTEINS ARE IDENTIFIED ON IMMUNOFIXATION ELECTROPHORESIS. REVIEWED BY Joseph HARDIN0. 56 NORMAL SERUM PROTEIN ELECTROPHORESIS REVIEWED BY Joseph HARDIN0. 57 RESULT VERIFIED BY REPEAT ANALYSIS 58 1 LARGE SST TUBE Procedures Date CPT Code Description Status Comment 02/19/2015 42289 Electrocardiogram Complete Completed 11/25/2009 Colonoscopy Completed follow-up 201912/28/2008 97947 Electrocardiogram Complete Completed Encounters Type Date Location Provider CPT E/M Dx Office Visit 10/09/2017 9:30a Main Office MOLLY Deluna 41334 T24.002D Office Visit 09/30/2017 9:30a Main Office MOLLY Deluna 33107 T24.002D Office Visit 09/26/2017 8:30a [facility] Ndyia Angel, [address] T24.002A Albert X12.xxxA Office Visit 07/31/2017 9:20a [facility] Office Topher Low M.D. 67616 Z00.01 E78.2 E03.9 Z12.5 Z12.11 Z11.59 Office Visit 07/02/2017 8:30a [facility] Carolina Gonzalez, [facility] 00497 K13.79 Z71.6 Office Visit 12/19/2016 10:30a [facility] Office Carolina Gonzalez, [facility] 05787 M54.2 R21 A69.20 Office Visit 09/28/2016 1:30p [facility] Office Carolina Gonzalez, [facility] [address] S20.461A W57.xxxA Office Visit 07/23/2016 8:30a [facility] Office Topher Low M.D. 92459 Z00.00 Z12.5 Z12.11 R94.6 E78.2 Office Visit 06/15/2016 1:45p Main Office Marga Shahid, ROLLY 87563 R21 Office Visit 02/19/2015 12:30p Main Office Tony Porter M.D. 72110 786.50 Office Visit 09/01/2014 8:50a [facility] Office Topher Low M.D. 32438 V70.0 272.1 V76.51 V76.44 V04.81 Office Visit 03/08/2014 2:10p Main Office Ger Vo M.D. 66306 913.0 V06.5 E920.8 Office Visit 08/25/2013 8:50a [facility] Office Topher Low M.D. 26849 V70.0 V04.81 272.0 V18.3 305.1 723.1 V04.81 V76.41 v04.81 Office Visit 10/08/2011 11:00a [facility] Office Topher Low M.D. 31228 300.00 305.00 Office Visit 09/10/2011 1:50p [facility] Office Topher Low M.D. 95172 300.00 305.00 272.0 Office Visit 07/05/2011 2:10p Main Office Topher Low M.D. 57120 305.00 300.00 780.79 305.1 Office Visit 05/07/2011 8:00a [facility] Topher Low M.D. 46036 305.00 Office Visit 01/03/2011 2:00p [facility] Topher Low M.D. 32070 300.00 Office Visit 09/18/2010 3:50p [facility] Topher Low M.D. 63938 300.00 272.0 Office Visit 08/07/2010 4:00p [facility] Office Topher Low M.D. 36559 300.00 272.0 Office Visit 07/05/2010 3:45p [facility] Office Topher Low M.D. 01418 300.00 272.0 Office Visit 07/04/2009 4:00p [facility] Office Topher Low M.D. 88708 272.0 300.00 783.21 078.12 841.8 Office Visit 12/28/2008 11:20a [facility] Office Topher Low M.D. 30271 536.8 Office Visit 09/07/2008 3:50p Main Office Topher Low M.D. 51778 V41.7 Office Visit 05/20/2008 4:20p Main Office Topher Low M.D. 61791 272.0 300.00 305.1 054.9 Office Visit 05/01/2007 4:30p Main Office Topher Low M.D. 99421 272.0 300.00 303.90 723.9 305.1 Office Visit 10/29/2006 8:10a Main Office Topher Low M.D. 77083 272.0 300.00 303.90 723.9 Office Visit 10/04/2006 10:00a [facility] Sandeep Higginbotham M.D. 11091 782.1 Office Visit 08/01/2006 10:20a Main Office Topher Low M.D. 97159 311 300.00 303.90 272.0 Office Visit 05/20/2006 1:00p [facility] Topher Low M.D. 04920 723.9 311 303.90 300.00 Office Visit 03/27/2006 10:10a [facility] Topher Low M.D. 24603 723.9 788.62 Office Visit 02/26/2006 1:40p Main Office Topher Low M.D. 69623 723.9 311 303.90 Office Visit 01/29/2006 9:20a Main Office Topher Low M.D. 23526 723.9 311 300.00 305.1 303.90 780.79 272.0 Office Visit 01/14/2006 10:30a [facility] Topher Low M.D. 98837 723.9 311 300.00 305.1 303.90 780.79 Office Visit 01/03/2006 12:20p Main Office Topher Low M.D. 22147 311 303.90 300.00 305.1 Office Visit 12/04/2005 10:30a Main Office Topher Low M.D. 61836 311 303.90 300.00 305.1 Office Visit 10/31/2005 11:00a [facility] Topher Low M.D. 24224 311 303.90 Office Visit 10/25/2005 3:50p Main Office Topher Low M.D. 25887 303.90 311 300.00 302.70 Office Visit 09/05/2005 10:50a [facility] Topher Low M.D. 99558 300.00 Office Visit 07/26/2005 4:10p Main Office Topher Low M.D. 72140 272.0 Office Visit 09/14/2004 2:00p Main Office Topher Low M.D. 54801 272.4 V58.69 Office Visit 05/05/2004 1:00p [facility] Topher Low M.D. 67712 300.00 272.0 Office Visit 03/06/2004 3:20p Main Office Topher Low M.D. 88101 780.79 272.0 V70.0 300.00 607.84 V76.41 Office Visit 09/09/2003 10:30a Main Office Jose HerreraEric 39929 486 Office Visit 09/07/2003 1:00p Main Office Behzad De Anda M.D. 07576 486 Office Visit 04/27/2003 4:20p Main Office Topher Low M.D. 21354 272.4 729.1 782.0 Office Visit 11/16/2002 3:00p Main Office Topher Low M.D. 49954 272.4 569.49 Office Visit 07/14/2002 9:00a Main Office Topher Low M.D. 62854 Office Visit 01/22/2002 3:20p Main Office Topher Low M.D. 42464 Office Visit 02/13/2001 1:20p Main Office Topher Low M.D. 56868 Plan of Care Future Appointment(s):08/06/2018 9:20 am - Topher Low M.D. at [facility] Eijmqf5106/27/2018 - Joy Reid, NPS50.311A Abrasion of right elbow, initial encounterComments:The cut in your skin appears to be healing appropriately without evidence of foriegn body, bony injury, or ongoing infection.Call SRIKANTH if condition changes/worsens in any wayS50.01xA Contusion of right elbow, initial [id number] Elevated blood-pressure reading, w/o diagnosis of htnComments:Do some checking on your own and discuss with Dr. Low at your complete physical examination this fall. Don't smoke a cigarette prior to coming in for your appointment! I strongly encourage you to quit smoking for your health.AllComments:1. Patient has been queried about patient' s goals/preferences and functional/lifestyle goals at relevant visits. If relevant, describe: n/a2. Treatment goals as explained to the patient: n/a3. Are there barriers to meeting treatment goals? Yes No If Yes, please describe:4. Self-Management goals as described to the patient: Yes No
[2018-07-02 16:35] LABS: Hematocrit 47 % (42-52); Hemoglobin 16.1 g/dl (14.0-18.0); Mean Corpuscular HGB Conc 34 g/dl (31-36); Mean Corpuscular Hemoglobin 32 pg (27-31); Mean Corpuscular Volume 93 fL (80-94); Mean Platelet Volume 7.8 um3 (7.4-10.4); Platelet Count 263 10^3/ul (150-450); Red Blood Count 5.06 10^6/ul (4.00-5.40); Red Cell Distribution Width 13 % (10.5-15); White Blood Count 9.3 10^3/ul (3.5-10.8)
--- NOTE | 2018-07-02 16:44 | RAD ---
Indication: Chest pain, dizziness. Comparison: June 13, 2017 Technique: Upright AP 1621 hours Report: Clear lungs and pleural spaces. Negative for pneumothorax. The heart, pulmonary vasculature, and mediastinal contours are unremarkable. RIGHT AC joint osteoarthritis. IMPRESSION: #. No evidence for acute intrathoracic disease.
[2018-07-02 16:51] LABS: EGFR Non-African American 78.2 (>60)
--- NOTE | 2018-07-02 16:59 | ED ---
Complex/Multi-Sys Presentation - HPI Summary HPI Summary: This is Sarah olsen, documenting for attending Prabhu French MD. This patient is a 52 year old M BIBA to [facility] with a chief complaint of sudden left arm numbness, lightheadedness, and diaphoresis around 14:30 this afternoon lasting a few minutes. He states at the time he felt weak, like he may pass out. Denies chest pain, back pain, jaw pain, or headache with onset of symptoms. He states symptoms are currently resolved but he is still feeling weak. Additionally reports recent HTN dx at Dr. George office on 06/27/18, but he has not started HTN medications yet. He additionally reports a history of alcoholism. He states he is now only drinking every other day. He states he typically does not feel well on off days, which have been gradually worsening. States he has not drank alcohol today. I, Dr. French personally performed the services described in this documentation as scribed in my presence and it is both accurate and complete. - History Of Current Complaint Chief Complaint: EDDizziness Hx Obtained From: Patient Onset/Duration: Lasting Minutes Timing: Minutes Severity Currently: Mild Severity Initially: Moderate Location: Negative Character: Unable To Describe - left arm numbness Associated Signs And Symptoms: Positive: Dizziness, Weakness, Diaphoresis, Other - left arm numbness. Negative: Headache, Chest Pain - Allergies/Home Medications Allergies/Adverse Reactions: Allergies Allergy/AdvReac Type Severity Reaction Status Date / Time No Known Allergies Allergy Verified 06/13/17 05:36 Home Medications: Home Medications Levothyroxine TAB* [Synthroid TAB*] 25 mcg PO DAILY 07/02/18 [History Confirmed 07/02/18] Ebzvc-7-Xmcc Ethyl Esters (NF) [Lovaza (NF)] 2 gm PO BID 07/02/18 [History Confirmed 07/02/18] Pravastatin (NF) [Pravachol (NF)] 40 mg PO DAILY 07/02/18 [History Confirmed 07/12] ValACYclovir (*) [Valtrex 500 mg (*)] 500 mg PO DAILY 07/02/18 [History Confirmed 07/02/18] PMH/Surg Hx/FS Hx/Imm Hx Endocrine/Hematology History: Reports: Hx Thyroid Disease - hypo Denies: Hx Diabetes Cardiovascular History: Reports: Hx Hypercholesterolemia, Hx Hypertension - recently dx no current medications Denies: Hx Pacemaker/ICD Respiratory History: Denies: Hx Asthma, Hx Chronic Obstructive Pulmonary Disease (COPD) GI History: Denies: Hx Ulcer Musculoskeletal History: Denies: Hx Scoliosis Sensory History: Denies: Hx Hearing Aid Neurological History: Denies: Hx Headaches, Other Neuro Impairments/Disorders Psychiatric History: Reports: Hx Substance Abuse Denies: Hx Panic Disorder - Surgical History Surgery Procedure, Year, and Place: LEFT SHOULDER SURGERY Infectious Disease History: Yes Infectious Disease History: Denies: Hx Clostridium Difficile, Hx Hepatitis, Hx Human Immunodeficiency Virus (HIV), Hx of Known/Suspected MRSA, Hx Shingles, Hx Tuberculosis, Hx Known/ Suspected VRE, Hx Known/Suspected VRSA, History Other Infectious Disease, Traveled Outside the [place] in Last 30 Days - Family History Known Family History: Negative: Cardiac Disease, Hypertension, Diabetes - Social History Alcohol Use: Weekly Alcohol Amount: every other day Substance Use Type: Reports: None Smoking Status (MU): Heavy Every Day Tobacco Smoker Type: Cigarettes Amount Used/How Often: 1 1/2 PPD Length of Time of Smoking/Using Tobacco: began at 20 years of age Have You Smoked in the Last Year: Yes Review of Systems Positive: Fatigue, Skin Diaphoresis, Other - lightheaded. Negative: Fever, Chills Negative: Erythema Negative: Sore Throat Negative: Chest Pain Negative: Shortness Of Breath, Cough Negative: Abdominal Pain, Vomiting, Diarrhea, Nausea Negative: dysuria, hematuria Negative: Myalgia, Edema Negative: Rash Neurological: Other - dizziness Positive: Numbness - left arm All Other Systems Reviewed And Are Negative: Yes Physical Exam - Summary Physical Exam Summary: Constitutional: Well-developed, Well-nourished, Alert. (-) Distressed Skin: Warm, Dry HENT: Normocephalic; Atraumatic Eyes: Conjunctiva normal Neck: Musculoskeletal ROM normal neck. (-) JVD, (-) Stridor, (-) Tracheal deviation Cardio: Rhythm regular, rate tachycardic, Heart sounds normal; Intact distal pulses; The pedal pulses are 2+ and symmetric. Radial pulses are 2+ and symmetric. (-) Murmur Pulmonary/Chest wall: Effort normal. (-) Respiratory distress, (-) Wheezes, (-) Rales Abd: Soft, (-) epigastric tenderness, (-) Distension, (-) Guarding, (-) Rebound Musculoskeletal: (-) Edema Lymph: (-) Cervical adenopathy Neuro: Alert, Oriented x3 Psych: Mood and affect Normal Triage Information Reviewed: Yes Vital Signs On Initial Exam: Initial Vitals Temp Pulse Resp BP Pulse Ox 98.7 F 100 15 205/125 97 07/02/18 16:13 07/02/18 16:13 07/02/18 16:13 07/02/18 16:13 07/02/18 16:13 Vital Signs Reviewed: Yes Diagnostics - Vital Signs Vital Signs Temp Pulse Resp BP Pulse Ox 07/02/18 16:20 107 172/117 07/02/18 16:19 96 178/109 07/02/18 16:17 95 197/104 07/02/18 16:13 98.7 F 100 15 205/125 97 - Laboratory Lab Results: Lab Results 07/02/18 07/02/18 Range/Units 16:25 16:25 WBC 9.3 (3.5-10.8) 10^3/ul RBC 5.06 (4.00-5.40) 10^6/ul Hgb 16.1 (14.0-18.0) g/dl Hct 47 (42-52) % MCV 93 (80-94) fL MCH 32 H (27-31) pg MCHC 34 (31-36) g/dl RDW 13 (10.5-15) % Plt Count 263 (150-450) 10^3/ul MPV 7.8 (7.4-10.4) um3 Sodium 135 (135-145) mmol/L Potassium 4.5 (3.5-5.0) mmol/L Chloride 100 L (101-111) mmol/L Carbon Dioxide 27 (22-32) mmol/L Anion Gap 8 (2-11) mmol/L BUN 17 (6-24) mg/dL Creatinine 1.00 (0.67-1.17) mg/dL Est GFR ( Amer) 94.6 (>60) Est GFR (Non-Af Amer) 78.2 (>60) BUN/Creatinine Ratio 17.0 (8-20) Glucose 112 H (70-100) mg/dL Calcium 9.0 (8.6-10.3) mg/dL Total Bilirubin 0.50 (0.2-1.0) mg/dL AST 32 (13-39) U/L ALT 27 (7-52) U/L Alkaline Phosphatase 94 (34-104) U/L Troponin I 0.01 (<0.04) ng/mL Total Protein 7.0 (6.4-8.9) g/dL Albumin 4.1 (3.2-5.2) g/dL Globulin 2.9 (2-4) g/dL Albumin/Globulin Ratio 1.4 (1-3) Result Diagrams: 07/02/18 16:25 07/02/18 16:25 Lab Statement: Any lab studies that have been ordered have been reviewed, and results considered in the medical decision making process. - Radiology CXR Radiology Interpretation Completed By: Radiologist - No evidence for acute intrathoracic disease. ED Physician has reviewed this report. - EKG 1606 Cardiac Rate: Tachycardia - 102 BOM EKG Rhythm: Sinus Tachycardia EKG Interpretation: no STEMI Complex Multi-Symp Course/Dx Course Of Treatment: 52 year old M BIBA to [facility] with a chief complaint of sudden left arm numbness, lightheadedness, and diaphoresis around 14:30 this afternoon lasting a few minutes. He states at the time he felt weak, like he may pass out. Denies chest pain, back pain, jaw pain, or headache with onset of symptoms. He states symptoms are currently resolved but he is still feeling weak. Additionally reports recent HTN dx at Dr. George office on 06/27/18, but he has not started HTN medications yet. Patient is given Thaiamine, Metoprolol, and Tylenol. Bloodwork is unremarkable. CXR reveals: No evidence for acute intrathoracic disease. EKG is remarkable for tachycardia, but is otherwise normal. Patient's hypertension improves while in ED but does not resolve. Patient will be admitted. Patient is agreeable with this plan. - Diagnoses Provider Diagnoses: Hypertensive emergency, Chest pain, unspecified - Physician Notifications Discussed Care Of Patient With: Jessica Sewell - hospiatlist Instructed by Provider To: Admit As Inpatient Discharge - Sign-Out/Discharge Documenting (check all that apply): Patient Departure - Discharge Plan Condition: Stable Disposition: ADMITTED TO [facility]
[2018-07-02] MEDS ORDERED: Metoprolol Tartrate IV* 1 MG/ML 5 ML VIAL IV ONE ×2 (17:04→18:32)
[2018-07-02] MEDS ORDERED: Acetaminophen TAB* 325 MG PO PRN ×2 (18:36→18:44)
[2018-07-02] MEDS ORDERED: Al Hydrox/Mg Hydrox/Simet LIQ* 30 ML UDC PO PRN (18:36)
[2018-07-02] MEDS ORDERED: hydrALAZINE IV* 20 MG/ML VIAL IV SLOW PU PRN (18:41)
[2018-07-02] MEDS ORDERED: Thiamine IV* 100 MG/ML 2 ML VIAL IM ONE (18:44)
[2018-07-02] MEDS ORDERED: LORazepam TAB(*) 1 MG PO SCH (19:00)
[2018-07-02] MEDS ORDERED: Nicotine Inhaler* 10 MG AMP INH PRN ×2 (19:47→21:03)
[2018-07-02] MEDS ORDERED: Mouth Piece, Nicotine* 1 EACH CARTRIDGE INH PRN ×2 (19:47)
[2018-07-02] MEDS ORDERED: Nicotine GUM* 2 MG PO PRN (19:47)
[2018-07-02] MEDS ORDERED: Enoxaparin(*) 40 MG/0.4 ML SYR SUBCUT SCH (20:00)
--- NOTE | 2018-07-02 21:11 | HP ---
ADMITTING HISTORY AND PHYSICAL: DATE OF ADMISSION: 07/02/18 CHIEF COMPLAINT: Dizziness and feeling like he is passing out. HISTORY OF PRESENT ILLNESS: The patient is a 52-year-old gentleman with history of hyperlipidemia and hypothyroidism, with recently diagnosed hypertension, currently not on any medical therapy, who presented with the above chief complaint. Five days prior to admission, he mentions that he visited the clinic of his regular physician, but was seen by one of his co- workers, possibly an [employer]IDENT[employer]IAN, who mentioned to him that his blood pressure was elevated at that time. He mentions that his blood pressure was around 160/120, but mentions that he was not given any prescriptions for his hypertension, but was told to continue to monitor his blood pressure every day and to come back for a followup visit tomorrow. However, he was in his usual state of health until a few hours prior to admission when he started feeling some "clammy sensation." He felt that he was more sweaty and he felt dizzy with his left arm feeling numb and he also felt like he was about to "pass out." In the ED, he received two doses of IV metoprolol 5 mg and was given an IV access. PAST MEDICAL HISTORY: Hypertension, hypothyroidism, hyperlipidemia, alcohol abuse, and hypercholesterolemia. PAST SURGICAL HISTORY: No documented surgical history. ALLERGIES: NKDA. FAMILY HISTORY: Coronary artery disease, his father was diagnosed with CAD at the age of 30; AFib, his father as well. SOCIAL HISTORY: He smokes about 1.5 packs per day for 30 years. He mentions that he also usually does 10 shots of vodka every night on average and he is currently unemployed, living with his parents and he mentions that he does not have any children nor . REVIEW OF SYSTEMS: He denied any chest pain, but mentions that he might have had some shortness of breath, but unsure whether this was due to his anxiety given his above symptoms. Denied any fevers or chills, but mentions that he did have some sweatiness a few hours prior to admission. He denies any headaches, but complains of dizziness as described. Denied any chest pain. Denied any abdominal pain, diarrhea, constipation, pain and/or increased frequency in urination, myalgias, arthralgias, throat pain, or new skin lesions. The rest of the 14-point review of systems other than what was previously described is otherwise unremarkable. PHYSICAL EXAMINATION GENERAL APPEARANCE: The patient is awake, alert, and oriented x3, not in acute distress. VITAL SIGNS: Reveals most recent vital signs of record, which shows the patient has supine hypertension with orthostasis. Please see EMR. 97% saturation, heart rate of 100, 98.7 degrees Fahrenheit. HEENT: Normocephalic, atraumatic. PERRLA. Extraocular muscles intact. Negative for icterus. Moist oral mucosa. Negative throat erythema. NECK: Soft, supple with no cervical lymphadenopathy, no JVD. CHEST: Clear to auscultation bilaterally. Good air entry. No wheezes, rales, or rhonchi. HEART: S1, S2 within normal limits. Regular rate and rhythm. No murmurs, rubs , or gallops. ABDOMEN: Soft, nondistended, nontender. Normoactive bowel sounds x4 quadrants. EXTREMITIES: No cyanosis, clubbing, or edema. PSYCHIATRIC: No active psychosis, depression, suicidal or homicidal ideation. SKIN: Warm to touch. DIAGNOSTIC STUDIES/LAB DATA: Pertinent laboratories include CBC, all were found to be normal parameters except for mildly elevated MCH of 32. Chemistries , again relatively normal parameters except for mildly low chloride of 100 and glucose of 112. His troponins were found to be within normal limits at 0.01. His EKG shows mild sinus tachycardia with no ST segment changes and chest x-ray shows no acute disease. ASSESSMENT AND PLAN: The patient is a 52-year-old gentleman with history of hypothyroidism, hypercholesterolemia and newly diagnosed hypertension , not currently on therapy, being admitted for hypertensive emergency. 1. Hypertensive emergency. His MAP on presentation was calculated to be 151.[address] the patient on metoprolol tartrate 25 mg p.o. b.i.d. to start and p.r.n. hydralazine for MAP limit of greater than or equal to 106.2, so as not to induce ischemic cerebrovascular accident by rapidly normalizing his blood pressure. Given his symptoms, he might also benefit from possible stress test in the morning depending on his blood pressure , but this can certainly be done as an outpatient as well. At this time, we will continue to trend troponins as ordered and we will ask nursing staff to call RO[facility] MORRISSEY if it is abnormal. We will consult Cardiology if troponins become positive given his significant family history. 2. Hypothyroidism. We will check TSH in a.m. In the meantime, we will continue Synthroid. 3. Hyperlipidemia. Continue Lovaza as well as statins as ordered. We will check fasting lipid levels in a.m. 4. Alcohol abuse. We will place the patient on a WA protocol and we will continue watchful waiting. 5. DVT prophylaxis: We will place the patient on Lovenox subcu. 6. Disposition: As above. [id number]/[facility] #: [id number] FADIA
[2018-07-02] MEDS: Metoprolol Tartrate TAB* 25 MG PO SCH (21:59)
[2018-07-03 05:35] LABS: Hematocrit 43 % (42-52); Hemoglobin 14.7 g/dl (14.0-18.0); Mean Corpuscular HGB Conc 34 g/dl (31-36); Mean Corpuscular Hemoglobin 32 pg (27-31); Mean Corpuscular Volume 93 fL (80-94); Mean Platelet Volume 7.9 um3 (7.4-10.4); Platelet Count 224 10^3/ul (150-450); Red Blood Count 4.62 10^6/ul (4.00-5.40); Red Cell Distribution Width 13 % (10.5-15); White Blood Count 5.8 10^3/ul (3.5-10.8)
[2018-07-03] MEDS: OMEGA ACID ETHYL ESTERS PO SCH ×2 (05:46→10:31)
[2018-07-03 05:53] LABS: EGFR Non-African American 79.1 (>60)
[2018-07-03] MEDS ORDERED: Levothyroxine TAB* 25 MCG TAB PO SCH (06:00)
[2018-07-03] MEDS ORDERED: Nicotine PATCH 21 MG/24 HR* PATCH TRANSDERM SCH (08:00)
[2018-07-03] MEDS ORDERED: ValACYclovir (*) 500 MG TAB PO SCH (09:00)
[2018-07-03] MEDS ORDERED: Atorvastatin* 40 MG TAB PO SCH (09:00)
[2018-07-03] MEDS ORDERED: Thiamine TAB* 100 MG TAB PO SCH (09:00)
[2018-07-03] MEDS ORDERED: Folic Acid TAB* 1 MG PO SCH (09:00)
[2018-07-03] MEDS ORDERED: Multivitamins/Minerals TAB PO SCH (09:00)
[2018-07-03 11:59] VITALS: BP 160/92
[2018-07-03] MEDS ORDERED: Regadenoson* 0.4 MG/5 ML SYRINGE ONE (14:27)
--- NOTE | 2018-07-03 14:53 | RAD ---
Edited for charges. INDICATION: Shortness of breath. Discomfort and tingling sensation in the LEFT arm. Multiple risk factors for coronary artery disease. COMPARISON: No relevant prior exams available on the [facility] for comparison. TECHNIQUE: 10.600 mCi of Tc-99m Myoview were administered IV. SPECT images of the heart were obtained. Later on the same day. Under the direction of Dr. Govea, the patient was given an IV injection of a pharmacologic stress agent. Subsequently, the patient was given an IV injection of 24.900 mCi Tc-99m Myoview. SPECT images of the heart were obtained and a gated wall motion study was performed. FINDINGS: Gated wall motion images were obtained at stress and demonstrate hypokinesia at the septum and to a lesser extent the inferior wall. The calculated left ventricular ejection fraction is 52 % at stress. Estimated LEFT ventricular end diastolic volume is 73 mL. TID 0.80. Diaphragmatic attenuation noted on the nonattenuation corrected series. Based on review of the attenuation corrected and non corrected images the distribution of radiopharmaceutical within the myocardium on the stress and rest images is within normal limits. No fixed or reversible regions of hypoperfusion evident. IMPRESSION: #. Hypokinesia at the septum and to a lesser extent the inferior wall. Lower normal range estimated LEFT ventricular ejection fraction. #. No scintigraphic evidence for stress-induced ischemia or presence of an infarct. ASSESSMENT: Low risk based on nuclear portion. Based on imaging criteria from ACC/AHA 2002 Guideline Update for the Management of Patients With Chronic Stable Angina Table 23. Noninvasive Risk Stratification. MTDD
[2018-07-03] MEDS ORDERED: Enalapril TAB* 5 MG PO SCH (15:00)
[2018-07-03] MEDS: Metoprolol Tartrate TAB* 25 MG PO SCH (15:03)
[2018-07-03] MEDS ORDERED: Metoprolol Tartrate TAB* 25 MG PO SCH (21:00)
--- NOTE | 2018-07-04 03:35 | DS ---
CC: Dr. Prabhu French; Dr. Topher Low * DISCHARGE SUMMARY: DATE OF ADMISSION: DATE OF DISCHARGE: 07/03/18 DISCHARGE DIAGNOSES: As follows: 1. Hypertensive urgency. 2. Subclinical hypothyroidism in the setting of thyroid replacement therapy, likely secondary to #1. 3. Hyperlipidemia. 4. Alcohol abuse, no evidence of withdrawal, lifestyle modification advised. DISCHARGE MEDICATIONS: As follows: 1. Enalapril 5 mg tab p.o. q. daily. 2. Levothyroxine 25 mcg p.o. q. daily. 3. Multivitamins 1 tab p.o. q. daily. 4. Nicotine gum 2 mg p.o. q. 6 p.r.n. 5. Nicotine patch 21 mg patch q. daily. 6. Lovaza 2 grams p.o. b.i.d. 7. Valacyclovir 500 mg p.o. q. daily. 8. Cyanocobalamin 1000 mcg p.o. q. daily. 9. Metoprolol tartrate 37.5 mg p.o. b.i.d. 10. Thiamine 100 mg p.o. q. daily. 11. Pravastatin 40 mg p.o. q. daily. HISTORY OF PRESENT ILLNESS/HOSPITAL COURSE: The patient is a 52-year-old gentleman with history of hyperlipidemia, hypothyroidism with recently diagnosed hypertension, who was admitted on 07/02/18, for a possible hypertensive emergency; however, overnight observation did not reveal any end- organ damage such as absence of elevated troponin, normal renal function as well as a negative stress test. Although he did present with symptoms of diaphoresis, dizziness, and his left arm feeling numb for a few minutes and mentioned that he felt like he was about to "pass out." He was therefore admitted for observation with appropriate p.r.n. meds and holding orders for his antihypertensive therapy. For the balance of risks and benefits of hypertensive treatment versus the risk of inducing an ischemic stroke given his calculated MAP on presentation was 151.66. He has done well with this regimen and had a stress test done which was negative and was found to have no acute coronary syndrome with troponins being negative x3. His TSH was also drawn and was found to be moderately elevated at 5.85 but with a normal free T4, likely due to subclinical hypothyroidism in the setting of thyroid replacement therapy given hypertensive urgency just described above. Subsequent evaluation of his fasting lipid levels as well as observing patient under a WAM protocol did not reveal that any changes should be made with his hyperlipidemic therapy and his WAM scores does not reveal that he is in current withdrawal. He had been advised lifestyle modifications for both tobacco and alcohol prior to his discharge. He was advised to follow up and/or call his PCP within 3 days post discharge and he was advised that if he is having any problems and/or his symptoms worsened, to call his PCP first to see if his concerns can be addressed in a timely manner. If not or if he has been advised to go to the ER, he was advised to discuss this further with his PCP whether he can be seen with a [facility] followup if this is appropriate versus ER. He was advised to call [facility] if it is deemed appropriate. He had been informed that his stress test was read as low probability for having coronary artery disease. However, given his significant lifestyle risks such as significant smoking history as well as alcohol abuse and uncontrolled hypertension together with significant family history of coronary artery disease, he was advised to discuss the value of CT calcium scores with his PCP and hence will defer. He was requested to abstain from smoking and/or drinking alcohol and it was further stressed that cutting these 2 habits out of his routine would improve his BP significantly and sometimes may even be discontinued eventually in some patients. He was advised to call my office regarding any questions, concerns, or further clarifications regarding his discharge plans and/or prescriptions and he was advised to take his medications as prescribed. TIME SPENT: The total time spent evaluating the patient, reviewing pertinent data and appropriate documentation is greater than 30 minutes. [id number]/[facility] #: [id number] FADIA
== END 2018-07-03 16:24 | disposition home or self-care (01) ==
LOC: ED 16:03 → MEDTELE 18:36
PROVIDERS: ADMIT Student in an Organized Health Care Education/Training Program; ATTEND Student in an Organized Health Care Education/Training Program
DX: R42 Dizziness and giddiness (principal); R53.1 Weakness; I10 Essential (primary) hypertension; F17.210 Nicotine dependence, cigarettes, uncomplicated; R53.83 Other fatigue; I16.0 Hypertensive urgency; E03.9 Hypothyroidism, unspecified; E78.5 Hyperlipidemia, unspecified; F10.10 Alcohol abuse, uncomplicated
CPT/HCPCS: 36415; 71045; 78452; 80053; 80061; 83735; 84100; 84439; 84443; 84484; 85027; 93005; 93017; 96374; 96375; 99284; A9270-GY; A9502; G0378; J0360; J1650; J2785; J3411; J3490

== ENCOUNTER 2018-10-27 09:55 | Emergency (ER) | payer SELFPAY ==
[2018-10-27 10:05] VITALS: BP 181/118
--- NOTE | 2018-10-27 10:25 | UC ---
Palpitation/Dysrhythmia HP - HPI Summary HPI Summary: 53-year-old male presents with high blood pressure for the past couple days. He states he feels foggy. He admits occasional shortness breath. No chest pain. He also feels like his heart racing for the past couple days. He states he had similar episode like this in June and was admitted for hypertensive urgency. He states he hasn't missed any of his blood pressure medications. He denies any chest pain currently. He denies any dizziness. He states that his blood pressure this morning was 150/120. Yesterday it was in the 170s and 180s systolic. He has been gaining weight for past couple week. had normal stress test in jun. he has not drunk ETOH in past 10 days. - History of Current Complaint Chief Complaint: UCCardiac Stated Complaint: BP UP PULSE UP Time Seen by Provider: 10/27/18 10:20 Pain Intensity: 4 - Allergy/Home Medications Allergies/Adverse Reactions: Allergies Allergy/AdvReac Type Severity Reaction Status Date / Time No Known Allergies Allergy Verified 10/27/18 10:55 Home Medications: Home Medications Levothyroxine TAB* [Synthroid TAB*] 25 mcg PO 0800 10/27/18 [History Confirmed 10/27/18] Metoprolol Succinate [Metoprolol Succinate ER] 25 mg PO QPM 10/27/18 [History Confirmed 10/27/18] PMH/Surg Hx/FS Hx/Imm Hx Endocrine History: Thyroid Disease Cardiovascular History: Hypertension - Surgical History Surgical History: Yes Surgery Procedure, Year, and Place: LEFT SHOULDER SURGERY - Family History Known Family History: Negative: Cardiac Disease, Hypertension, Diabetes - Social History Alcohol Use: Daily Alcohol Amount: stopped for the past 10 days Substance Use Type: None Smoking Status (MU): Former Smoker Type: Cigarettes Amount Used/How Often: 1 1/2 PPD Length of Time of Smoking/Using Tobacco: began at 20 years of age Have You Smoked in the Last Year: Yes When Did the Patient Quit Smoking/Using Tobacco: quit in june 2018 Review of Systems All Other Systems Reviewed And Are Negative: Yes Constitutional: Positive: Negative Respiratory: Negative: Shortness Of Breath Cardiovascular: Positive: Palpitations. Negative: Chest Pain Neurological: Positive: Headache - foggy feeling Physical Exam Triage Information Reviewed: Yes Appearance: Well-Appearing Vital Signs: Initial Vital Signs Temp 98.2 F 10/27/18 09:57 Pulse 137 10/27/18 09:57 Resp 18 10/27/18 09:57 BP 181/118 10/27/18 09:57 Pulse Ox 100 10/27/18 09:57 Vital Signs Reviewed: Yes Eye Exam: Normal ENT: Positive: Pharynx normal Respiratory: Positive: Lungs clear, Normal breath sounds Cardiovascular: Positive: Tachycardia Abdomen Description: Positive: Nontender, Soft Bowel Sounds: Positive: Present Musculoskeletal Exam: Normal Neurological Exam: Normal Psychological Exam: Normal Skin Exam: Normal Diagnostics - EKG Cardiac Rate: Tachycardia EKG Comparison: Other - new onset Summary of EKG Findings: atrial flutter Palpitations Course/Dx - Course Course Of Treatment: 53 year old presents with htn and palipations for past three weeks. states feels foggy. patient is tachycardic. ekg shows new onset of atrial flutter. bp is 181/118. discussed that patient needs further work up in ED. patient states has been feeling like this for days and discussed ambulance vs private car and patient feels stable enough to drive self. - Differential Dx/Diagnosis Differential Diagnosis/HQI/PQRI: Congestive Heart Failure, Other - atrial flutter, htn Provider Diagnosis: HTN (hypertension), Atrial flutter Discharge - Sign-Out/Discharge Documenting (check all that apply): Patient Departure All imaging exams completed and their final reports reviewed: No Studies - Discharge Plan Condition: Stable Disposition: HOME-RECOMMEND TO ED Referrals: Topher Low MD [Primary Care Provider] - Additional Instructions: Go directly to the ED If develop chest pain, shortness of breath machine puller over and call 911 - Billing Disposition and Condition Condition: STABLE Disposition: Home-Recommend to ED - Attestation Statements Provider Attestation: Per institutional requirements, I have reviewed the chart, however, I was not consulted specifically or made aware of this patient by the midlevel provider. I did not personally evaluate, interact with , or disposition this patient.
== END 2018-10-27 10:34 | disposition home health service (06) ==
LOC: UCEAST 09:55
DX: I10 Essential (primary) hypertension (principal); I48.91 Unspecified atrial fibrillation; E07.9 Disorder of thyroid, unspecified; Z87.891 Personal history of nicotine dependence
CPT/HCPCS: 93005; 99212; G0463

== ENCOUNTER 2018-10-27 10:49 | Observation (INO) | payer SELFPAY ==
[2018-10-27] MEDS ORDERED: NS 0.9% 1000 ML*IV.FLUID IV ONE (11:18)
[2018-10-27] MEDS ORDERED: Diltiazem IV* 5 MG/ML 5 ML VIAL (for loading dose/IV Push) (25 MG) IV SLOW PU ONE ×2 (11:34→13:22)
--- NOTE | 2018-10-27 11:35 | ED ---
Hypertension - HPI Summary HPI Summary: A 53 y/o male presents to [facility] with a chief complaint of hypertension "for weeks now". He has had a HTN episode in June 2018, which put the patient on Enalapril. The patient reports that he has been monitoring his BP for weeks now and it has been high but he has not trusted the measurements. He then went to the pharmacy and his BP was 180/120 and so he went to . At he had an EKG done which showed A-flutter. He also reports drinking 10 shots of EtOH during 5 hours every other day for a year. He claims that he used to drink EtOH every day. He claims that days he does not drink he does not have aching or sweating but he feels sluggish. He denies self-harm ideation. The patient endorses mild SOB, confusion and fatigue. The patient denies blurry vision but states his vision has been foggy. He denies Fever, Chills, Erythema (eyes), Sore throat, Chest pain, Cough, Abdominal pain, Vomiting, Nausea,Dysuria, Hematuria, Myalgia , Edema, Rash and Dizziness. - History of Current Complaint Chief Complaint: EDDysrhythmPalp Stated Complaint: HEART PALPATATIONS Time Seen by Provider: 10/27/18 11:20 Hx Obtained From: Patient Onset/Duration: Started Weeks Ago, Still Present Timing: Constant Reported Blood Pressure Prior To Arrival: 180/120 Aggravating Factor(s): Nothing Alleviating Factor(s): Nothing Associated Signs & Symptoms: Vision Changes, Dizziness - Risk Factors Cardiac Risk Factors: Hypertension - Allergies/Home Medications Allergies/Adverse Reactions: Allergies Allergy/AdvReac Type Severity Reaction Status Date / Time No Known Allergies Allergy Verified 10/27/18 10:55 Home Medications: Home Medications Enalapril TAB* [Vasotec TAB*] 5 mg PO QPM 10/27/18 [History Confirmed 10/27/18] Sylvia-3 Acid Ethyl Esters 1 cap PO DAILY 10/27/18 [History Confirmed 10/27/18] PMH/Surg Hx/FS Hx/Imm Hx Endocrine/Hematology History: Reports: Hx Thyroid Disease Denies: Hx Diabetes Cardiovascular History: Reports: Hx Angina, Hx Hypercholesterolemia, Hx Hypertension - recently dx on meds, Hx Valvular Heart Disease Denies: Hx Coronary Artery Disease, Hx Myocardial Infarction, Hx Pacemaker/ ICD Respiratory History: Denies: Hx Asthma, Hx Chronic Obstructive Pulmonary Disease (COPD) GI History: Denies: Hx Ulcer Musculoskeletal History: Denies: Hx Scoliosis Sensory History: Reports: Hx Contacts or Glasses Denies: Hx Cataracts, Hx Eye Injury, Hx Eye Prosthesis, Hx Glaucoma, Hx Legally Blind, Hx Macular Degeneration, Hx Vision Problem, Hx Hearing Aid, Hx Hearing Problem, Other Sensory Impairments Opthamlomology History: Reports: Hx Contacts or Glasses Denies: Hx Cataracts, Hx Eye Injury, Hx Eye Prosthesis, Hx Glaucoma, Hx Legally Blind, Hx Macular Degeneration, Hx Vision Problem, Other Sensory Impairments Neurological History: Denies: Hx Headaches, Other Neuro Impairments/Disorders Psychiatric History: Reports: Hx Substance Abuse Denies: Hx Panic Disorder - Surgical History Surgery Procedure, Year, and Place: LEFT SHOULDER SURGERY Infectious Disease History: No Infectious Disease History: Reports: History Other Infectious Disease - herpes Denies: Hx Clostridium Difficile, Hx Hepatitis, Hx Human Immunodeficiency Virus (HIV), Hx of Known/Suspected MRSA, Hx Shingles, Hx Tuberculosis, Hx Known/ Suspected VRE, Hx Known/Suspected VRSA, Traveled Outside the [place] in Last 30 Days - Family History Known Family History: Negative: Cardiac Disease, Hypertension, Diabetes - Social History Alcohol Use: Daily Alcohol Amount: stopped for the past 10 days Substance Use Type: Reports: None Smoking Status (MU): Former Smoker Type: Cigarettes Amount Used/How Often: 1 1/2 PPD Length of Time of Smoking/Using Tobacco: began at 20 years of age Have You Smoked in the Last Year: Yes Review of Systems Positive: Fatigue. Negative: Fever, Chills Eyes: Other - Foggy vision Negative: Blurred Vision, Erythema Negative: Sore Throat Negative: Chest Pain Positive: Shortness Of Breath. Negative: Cough Negative: Abdominal Pain, Vomiting, Nausea Negative: dysuria, hematuria Negative: Myalgia, Edema Negative: Rash Neurological: Negative - Dizziness Psychological: Other - negative: self-harm ideation All Other Systems Reviewed And Are Negative: Yes Physical Exam - Summary Physical Exam Summary: Constitutional: Well-developed, Well-nourished, Alert. (-) Distressed Skin: Warm, Dry HENT: Normocephalic; Atraumatic Eyes: Conjunctiva normal Neck: Musculoskeletal ROM normal neck. (-) JVD, (-) Stridor, (-) Tracheal deviation Cardio: Rhythm regular, rate normal, Heart sounds normal; Intact distal pulses; The pedal pulses are 2+ and symmetric. Rapid radial pulse. (-) Murmur Pulmonary/Chest wall: Effort normal. (-) Respiratory distress, (-) Wheezes, (-) Rales Abd: Soft, (-) epigastric tenderness, (-) Distension, (-) Guarding, (-) Rebound Musculoskeletal: (-) Edema Lymph: (-) Cervical adenopathy Neuro: Alert, Oriented x3 Psych: Mood and affect Normal Triage Information Reviewed: Yes Vital Signs On Initial Exam: Initial Vitals Temp Pulse Resp BP Pulse Ox 98 F 142 18 168/127 99 10/27/18 10:51 10/27/18 10:51 10/27/18 10:51 10/27/18 10:51 10/27/18 10:51 Vital Signs Reviewed: Yes Diagnostics - Vital Signs Vital Signs Temp Pulse Resp BP Pulse Ox 10/27/18 11:04 135 23 166/122 99 10/27/18 11:02 139 98 10/27/18 10:51 98 F 142 18 168/127 99 - Laboratory Result Diagrams: 10/27/18 11:30 10/27/18 11:30 Lab Statement: Any lab studies that have been ordered have been reviewed, and results considered in the medical decision making process. - Radiology CXR Radiology Interpretation Completed By: Radiologist Summary of Radiographic Findings: #. Stigmata of obstructive lung disease. No acute pulmonary or cardiac process evident. ED physician has reviewed this imaging report. - EKG 11:03 Cardiac Rate: Other Rate - Atrial Flutter at 135 bpm EKG Rhythm: Atrial Flutter Summary of EKG Findings: SVT, no STEMI Re-Evaluation - Re-Evaluation First Eval Re-Evaluation Time: 12:10 Change: Unchanged Comment: patient in atrial flutter Hypertension Course/Dx - Course Course Of Treatment: A 53 y/o male presents to [facility] with a chief complaint of hypertension "for weeks now". He has had a HTN episode in June 2018, which put the patient on Enalapril. The patient reports that he has been monitoring his BP for weeks now and it has been high but he has not trusted the measurements. He then went to the pharmacy and his BP was 180/120 and so he went to [facility]. At he had an EKG done which showed A-flutter. He also reports drinking 10 shots of EtOH during 5 hours every other day for a year. He claims that he used to drink EtOH every day. He claims that days he does not drink he does not have aching or sweating but he feels sluggish. He denies self-harm ideation. The patient endorses mild SOB, confusion and fatigue. The patient denies blurry vision but states his vision has been foggy. He denies Fever, Chills, Erythema (eyes), Sore throat, Chest pain, Cough, Abdominal pain, Vomiting, Nausea,Dysuria, Hematuria, Myalgia, Edema, Rash and Dizziness. The Physical Exam revealed rapid radial pulse. The patient was given sodium chloride , ativan and Diltiazem IV in the ED course. An EKG was obtained showing atrial flutter at 135 bpm. Lab results were obtained and WNL. Dx: rapid atrial flutter , alcoholism, uncontrolled HTN. Case discussed with Dr. Chandra, hospitalist, and he will accept the patient for admission. - Diagnoses Provider Diagnoses: Atrial flutter with rapid ventricular response, Alcoholism, Uncontrolled hypertension - Physician Notifications Discussed Care Of Patient With: Austin Chandra Time Discussed With Above Provider: 12:15 Instructed by Provider To: Admit As Inpatient - Critical Care Time Critical Care Time: 30-74 min - 45 mins Discharge - Sign-Out/Discharge Documenting (check all that apply): Patient Departure - Admit - Discharge Plan Condition: Fair Disposition: ADMITTED TO [facility] Referrals: Topher Low MD [Primary Care Provider] - - Attestation Statements Document Initiated by Scribe: Yes Documenting Scribe: Javy Whitaker Provider For Whom Vikramibaruna is Documenting (Include Credential): Prabhu French MD Scribe Attestation: Javy Weiss, scribed for Prabhu French MD on 10/27/18 at 1322.
[2018-10-27 11:42] LABS: ABS Basophils 0.1 10^3/ul (0-0.2); ABS Eosinophils 0 10^3/ul (0-0.6); ABS Lymphocytes 2.1 10^3/ul (1.0-4.8); ABS Monocytes 0.7 10^3/ul (0-0.8); ABS Neutrophils 3.9 10^3/ul (1.5-7.7); ABS Nucleated RBC 0 10^3/ul; Eosinophil % 0.6 %; Hematocrit 41 % (42-52); Hemoglobin 13.6 g/dl (14.0-18.0); Lymphocyte % 30.2 %; Mean Corpuscular HGB Conc 34 g/dl (31-36); Mean Corpuscular Hemoglobin 32 pg (27-31); Mean Corpuscular Volume 94 fL (80-94); Mean Platelet Volume 8.2 fL (7.4-10.4); Nucleated Red Blood Cells % 0.1; Platelet Count 256 10^3/ul (150-450); Red Blood Count 4.32 10^6/ul (4.00-5.40); Red Cell Distribution Width 14 % (10.5-15); White Blood Count 6.9 10^3/ul (3.5-10.8)
[2018-10-27 12:01] LABS: EGFR Non-African American 65.6 (>60)
[2018-10-27] MEDS ORDERED: LORazepam INJ* 2 MG/ML 1 ML VIAL IV PUSH ONE (12:12)
[2018-10-27] MEDS ORDERED: Diltiazem TAB* 60 MG PO ONE (13:22)
[2018-10-27] MEDS ORDERED: Acetaminophen TAB* 325 MG PO PRN (14:14)
[2018-10-27] MEDS ORDERED: Aspirin EC TAB* 81 MG TAB.EC PO ONE (14:20)
[2018-10-27] MEDS ORDERED: Metoprolol Succinate XL TAB* 50 MG PO ONE (14:24)
[2018-10-27] MEDS ORDERED: Thiamine IV* 100 MG/ML 2 ML VIAL IM ONE (14:25)
[2018-10-27] MEDS: Folic Acid TAB* 1 MG PO SCH (14:51)
[2018-10-27] MEDS ORDERED: Metoprolol Succinate XL TAB* 25 MG PO SCH (15:00)
[2018-10-27] MEDS ORDERED: LORazepam INJ* 2 MG/ML 1 ML VIAL IV PUSH SCH (15:00)
[2018-10-27] MEDS: Multivitamins/Minerals TAB PO SCH (16:04)
[2018-10-27] MEDS: Enalapril TAB* 5 MG PO SCH ×2 (17:10→17:32)
[2018-10-27] MEDS: Atorvastatin* 10 MG TAB PO SCH (17:10)
[2018-10-27] MEDS: Diltiazem TAB* 30 MG PO SCH ×3 (17:10→23:43)
[2018-10-27] MEDS ORDERED: Heparin VIAL(*) 5000 UNITS/ML VIAL (FIVE THOUSAND) SUBCUT SCH (22:00)
[2018-10-27] MEDS: Apixaban* 5 MG TAB PO SCH (23:43)
--- NOTE | 2018-10-28 00:22 | HP ---
CC: Dr. Low * HISTORY AND PHYSICAL: DATE OF ADMISSION: 10/27/18. PROVIDER: Kaelyn Lai NP. PRIMARY CARE PROVIDER: Dr. Low. ATTENDING PHYSICIAN WHILE IN THE HOSPITAL: Dr. Austin Chandra * (dictated by Kaelyn Lai NP). CHIEF COMPLAINT: 1. Increased heart rate. 2. Hypertension. HISTORY OF PRESENT ILLNESS: Mr. Perez is a 53-year-old male with a past medical history significant for hypertension, hypothyroid, hyperlipidemia, and severe alcohol abuse, who presented to the emergency room with complaints of increased heart rate and increased blood pressure x2 weeks. The patient also reports increased fatigue, mild weight gain, and was feeling foggy. He reports no feelings of palpitation. He reports within the past 2 weeks, he had 1 episode where he could feel his pulse in his neck, but that only lasted briefly. He denies any shortness of breath, nocturnal dyspnea. He does report that he has been a heavy drinker for several years. He reports that he drinks 10 glasses of wine last night. He states that he has recently cut back on his drinking. He reports over that he stopped drinking alcohol for approximately 10 days, but does report that he had increased heart rate and blood pressure prior to stopping drinking. He reports that he alternating between vodka and wine, but generally drinks vodka. He states that he drinks about 10 shots of vodka a night, but over the past few days, he has been drinking every other day. He denies any fever or chills. Denies any loss of appetite. Denies chest pain or edema. Denies any cough, hemoptysis. He did have a brief episode where about 1 week ago where he felt he could not take a deep breath that has subsided. He has had no further episodes. He denies any nausea, vomiting or diarrhea. Denies any abdominal pain. Denies any gross hematuria or dysuria. Denies any focal weakness or sensory loss. Denies any visual complaints. Denies any dysphagia. Denies any arthralgias or myalgias. Denies any rashes or lesions. Denies any psychosis. Does report increased anxiety. PAST MEDICAL HISTORY: Significant for: 1. Hypertension. 2. Hypothyroid. 3. Hyperlipidemia. 4. Chronic alcohol abuse. PAST SURGICAL HISTORY: Left shoulder surgery. HOME MEDICATIONS: 1. Martin 3. 2. Enalapril 5 mg p.o. daily. 3. Pravastatin 40 mg p.o. daily. 4. Metoprolol 25 mg p.o. q.p.m. 5. Vitamin B12 1000 mcg p.o. daily. 6. Acyclovir 500 mg p.o. daily. 7. Levothyroxine 25 mcg p.o. daily. ALLERGIES TO MEDICATIONS: No known drug allergies. FAMILY HISTORY: Father with a history of atrial fibrillation and an WA at age 45. Denies any diabetes or cancer within the family. SOCIAL HISTORY: The patient reports he quit smoking in June. Prior to that, he smoked a pack and a half a day for approximately 30 years. Does report excessive alcohol drink with approximately 10 drinks every other day. Denies any illicit drug use. He is single. He lives alone. Surrogate decision maker in the event he is unable to make his own decision is his sister. He is a full code. REVIEW OF SYSTEMS: A review of 14 systems was completed, though was noted above where the pertinent positives, all of the rests were negative. PHYSICAL EXAMINATION GENERAL: At this time, Mr. Perez is a 53-year-old male. He appears well sitting on the stretcher in the emergency room. He does not appear to be in any acute distress. VITAL SIGNS: Blood pressure 142/94, heart rate is 108, respirations are 20, O2 saturation 98%, temperature is 98.0. HEENT: Head is atraumatic, normocephalic. Eyes: EOMs are intact. Sclerae anicteric and not pale. Oral mucosa appears to be moist. NECK: Supple. LUNGS: Clear to auscultation bilaterally. No wheezes, rales or rhonchi. CARDIAC: S1, S2. irregular rate and rhythm. No murmurs, rubs or gallops. He is tachycardic. ABDOMEN: Soft and nontender. Bowel sounds are present x4. EXTREMITIES: Pulses are +2 bilaterally. No edema. He is able to move all 4 extremities with 5/5 strength. NEUROLOGIC: He is awake, alert, and oriented x3. Speech is clear. Thought processes are intact. No gross focal deficits. SKIN: Intact. DIAGNOSTIC STUDIES/LAB DATA: WBCs are 6.9, RBCs 4.32, hemoglobin 13.6, hematocrit is 41, platelet count 256. D-dimer less than 200. Sodium 139, potassium 4.9, chloride of 107, carbon dioxide is 23, anion gap is 9, BUN is 20 , creatinine 1.16, glucose is 81, lactic acid 2.0, calcium 9.0, magnesium 2.0. ASTs are 20, ALTs are 21, alkaline phosphatase is 64. Troponin 0.00 and 0.01. TSH is 1.16, free T4 is 0.99. EKG showed aflutter at a rate of 119. Chest x-ray stigmata for obstructive lung disease, no acute pulmonary or cardiac evident. Process is evident. ASSESSMENT AND PLAN: Mr. Perez is a 53-year-old male patient, who presented to the emergency room today with complaints of increased blood pressure and increased heart rate. We were asked to see and evaluate him due to his tachycardia, new onset atrial flutter. He will be admitted inpatient for: 1. New onset atrial flutter. I suspect this could be related to his alcohol abuse. The patient did have a low risk nuclear stress in June of 2018. At this time, the patient did receive 2 L of IV fluids in the emergency room. He also received Cardizem a total of 20 mg IV push and Cardizem 60 p.o., which lowered his heart rate from 140s to 104. I will give his metoprolol 25mg to him now. I will continue him on Cardizem 30 mg p.o. q.6 hours. His CHADS-VASC score is 1. His score is 1 because of hypertension. He HAS-BLED score is 2 giving him a 4.1% risk of bleeding with a 1.88 per 100 patients per year of bleeds. At this time, we will place him on a baby aspirin. His Wells' criteria score is 1.5. His D-dimer was negative. At this time, his probability of pulmonary embolism is low, but this is within the differential. The patient is not hypoxic and not short of breath, so I will hold on CTA of the chest. We will continue to monitor him on telemetry, monitor his blood pressure and heart rate. I will repeat a BMP in the morning. 2. Hypertension. The patient does have elevated blood pressure on presentation to the emergency room. I will continue him on his home medications enalapril 5 mg and metoprolol 25 mg. 3. Alcohol abuse. I will place him on [facility] protocol with Ativan as needed. We will give him folic acid, vitamin B, and multivitamin. 4. Hyperlipidemia. Continue on pravastatin 40 mg p.o. daily. 5. Hyperthyroid. He will continue on levothyroxine 25 mcg p.o. daily. 6. Fluids, electrolytes, and nutrition: He can have a heart healthy, decaf- okay diet. 7. DVT prophylaxis: I will place him on heparin subcu. 8. Code status: He is a full code. TIME SPENT: Time spent on this admission was 60 minutes, greater than half that time was spent [id number] with the patient obtaining my history and physical, the other half of the time was spent going over my plan of care and implementing my plan of care. I have discussed this with my attending, Dr. Austin Chandra; he is in agreement with my plan. KAELYN LAI, ROLLY [id number]/CPS #: [id number] FADIA
[2018-10-28] MEDS: Diltiazem TAB* 30 MG PO SCH ×3 (05:59→18:00)
[2018-10-28] MEDS ORDERED: Levothyroxine TAB* 25 MCG TAB PO SCH (06:00)
[2018-10-28 06:54] LABS: EGFR Non-African American 91.4 (>60)
[2018-10-28] MEDS: Apixaban* 5 MG TAB PO SCH ×2 (08:47→18:04)
[2018-10-28] MEDS: Folic Acid TAB* 1 MG PO SCH (08:48)
[2018-10-28] MEDS: Multivitamins/Minerals TAB PO SCH (08:48)
[2018-10-28] MEDS ORDERED: Aspirin EC TAB* 81 MG TAB.EC PO SCH (09:00)
[2018-10-28] MEDS ORDERED: Thiamine TAB* 100 MG TAB PO SCH (09:00)
[2018-10-28] MEDS ORDERED: Cyanocobalamin TAB* 500 MCG PO SCH (09:00)
--- NOTE | 2018-10-28 09:46 | PN ---
Subjective Date of Service: 10/28/18 Interval History: Attests to two near syncopal episodes in last two weeks. He had been checking BP and HR at home and elevated prior to cessation of alcohol for 10 days which was his trial/experiment. Has been to Rehab twice, last in 2010. Sober for 6 months. Last AA was around that time as well. Wants to quit on his own, thinks he is "stronger" and takes encouragement from his successful smoking abstinence since June. HR to 140s during ECHO. Asymptomatic. Mostly 100s. Currently 110s. Still in AFlutter no ativan for WAM. Last drink 10/26. Never Afib/Aflutter/CVA. Had colonscopy 9 years ago for some bleeding. negative , 10 year follow (due 2019) Objective Active Medications: Acetaminophen (Tylenol Tab*) 650 mg PO Q4H PRN PRN Reason: FEVER/PAIN Apixaban (Eliquis*) 5 mg PO BID [facility] Last Admin: 10/28/18 08:47 Dose: 5 mg Aspirin (Aspirin Ec Tab*) 81 mg PO DAILY [facility] Last Admin: 10/28/18 08:47 Dose: 81 mg Atorvastatin Calcium (Lipitor*) 10 mg PO QPM [facility]; Protocol Last Admin: 10/27/18 17:10 Dose: 10 mg Cyanocobalamin (Vitamin B12 Tab*) 1,000 mcg PO DAILY [facility] Last Admin: 10/28/18 08:48 Dose: 1,000 mcg Diltiazem HCl (Cardizem Tab*) 30 mg PO Q6HR [facility] Last Admin: 10/28/18 05:59 Dose: 30 mg Enalapril Maleate (Vasotec Tab*) 5 mg PO QPM [facility] Last Admin: 10/27/18 17:32 Dose: Not Given Folic Acid (Folvite Tab*) 1 mg PO DAILY [facility] Last Admin: 10/28/18 08:48 Dose: 1 mg Levothyroxine Sodium (Synthroid Tab*) 25 mcg PO 0600 [facility] Last Admin: 10/28/18 05:59 Dose: 25 mcg Lorazepam (Ativan Inj*) 0 - 3 mg IV PUSH .PER [facility] PROTOCOL [facility]; Protocol Metoprolol Succinate (Toprol Xl Tab*) 25 mg PO 1800 [facility] Multivitamins/Minerals (Theragran/Minerals Tab*) 1 tab PO DAILY [facility] Last Admin: 10/28/18 08:48 Dose: 1 tab Thiamine HCl (Vitamin B-1 Tab*) 100 mg PO DAILY [facility] Last Admin: 10/28/18 08:48 Dose: 100 mg Vital Signs - 8 hr 10/28/18 10/28/18 10/28/18 02:00 03:37 04:00 Temperature 96.9 F Pulse Rate 66 Respiratory 20 18 16 Rate Blood Pressure 111/71 (mmHg) O2 Sat by Pulse 97 Oximetry 10/28/18 10/28/18 05:40 07:34 Temperature 98.5 F 97.4 F Pulse Rate 101 107 Respiratory 18 16 Rate Blood Pressure 132/86 135/87 (mmHg) O2 Sat by Pulse 97 96 Oximetry Oxygen Devices in Use Now: None Appearance: NAD Eyes: No Scleral Icterus, PERRLA Ears/Nose/Mouth/Throat: NL Teeth, Lips, Gums, Mucous Membranes Moist Neck: NL Appearance and Movements; NL JVP Respiratory: Symmetrical Chest Expansion and Respiratory Effort, Clear to Auscultation Cardiovascular: No Edema - irregularly irregular , - Abdominal: NL Sounds; No Tenderness; No Distention, No Hepatosplenomegaly Extremities: No Edema Skin: No Rash or Ulcers Neurological: Alert and Oriented x 3 Nutrition: Taking PO's Result Diagrams: 10/27/18 11:30 10/28/18 06:22 Additional Lab and Data: Laboratory Results - last 24 hr 10/27/18 10/27/18 10/27/18 11:30 11:30 11:30 WBC 6.9 RBC 4.32 Hgb 13.6 L Hct 41 L MCV 94 MCH 32 H MCHC 34 RDW 14 Plt Count 256 MPV 8.2 Neut % (Auto) 57.3 Lymph % (Auto) 30.2 [place] % (Auto) 10.6 Eos % (Auto) 0.6 Baso % (Auto) 1.3 Absolute Neuts (auto) 3.9 Absolute Lymphs (auto) 2.1 Absolute Monos (auto) 0.7 Absolute Eos (auto) 0 Absolute Basos (auto) 0.1 Absolute Nucleated RBC 0 Nucleated RBC % 0.1 D-Dimer, Quantitative Sodium 139 Potassium 4.9 Chloride 107 Carbon Dioxide 23 Anion Gap 9 BUN 20 Creatinine 1.16 Est GFR ( Amer) 79.4 Est GFR (Non-Af Amer) 65.6 BUN/Creatinine Ratio 17.2 Glucose 81 Lactic Acid 2.0 Calcium 9.0 Magnesium Total Bilirubin 0.50 AST 20 ALT 21 Alkaline Phosphatase 64 Troponin I 0.00 Total Protein 7.1 Albumin 4.2 Globulin 2.9 Albumin/Globulin Ratio 1.4 TSH Free T4 10/27/18 10/27/18 10/27/18 11:30 11:32 14:03 WBC RBC Hgb Hct MCV MCH MCHC RDW Plt Count MPV Neut % (Auto) Lymph % (Auto) [place] % (Auto) Eos % (Auto) Baso % (Auto) Absolute Neuts (auto) Absolute Lymphs (auto) Absolute Monos (auto) Absolute Eos (auto) Absolute Basos (auto) Absolute Nucleated RBC Nucleated RBC % D-Dimer, Quantitative < 200 Sodium Potassium Chloride Carbon Dioxide Anion Gap BUN Creatinine Est GFR ( Amer) Est GFR (Non-Af Amer) BUN/Creatinine Ratio Glucose Lactic Acid Calcium Magnesium 2.0 Total Bilirubin AST ALT Alkaline Phosphatase Troponin I 0.01 Total Protein Albumin Globulin Albumin/Globulin Ratio TSH 1.16 Free T4 0.99 10/27/18 10/28/18 17:10 06:22 WBC RBC Hgb Hct MCV MCH MCHC RDW Plt Count MPV Neut % (Auto) Lymph % (Auto) [place] % (Auto) Eos % (Auto) Baso % (Auto) Absolute Neuts (auto) Absolute Lymphs (auto) Absolute Monos (auto) Absolute Eos (auto) Absolute Basos (auto) Absolute Nucleated RBC Nucleated RBC % D-Dimer, Quantitative Sodium 136 Potassium 4.3 Chloride 105 Carbon Dioxide 23 Anion Gap 8 BUN 13 Creatinine 0.87 Est GFR ( Amer) 110.6 Est GFR (Non-Af Amer) 91.4 BUN/Creatinine Ratio 14.9 Glucose 92 Lactic Acid Calcium 9.1 Magnesium Total Bilirubin AST ALT Alkaline Phosphatase Troponin I 0.00 Total Protein Albumin Globulin Albumin/Globulin Ratio TSH Free T4 Assess/Plan/Problems-Billing Assessment: 53 yo female PMH former smoker, current long standing Alcohol abuse, recent HTN p/w few weeks of tachycardia, hypertension found to be in Aflutter. Cardiology consulted. - Patient Problems (1) Atrial flutter Current Visit: Yes Status: Acute Code(s): I48.92 - UNSPECIFIED ATRIAL FLUTTER SNOMED Code(s): 6874841 Comment: Dr. Marinelli has been consulted. Will follow up recs. ?Potential STERLING/ cardioversion follow-up ECHO results which has been captured but not read Pt with low risk nuclear stress on 07/03/18 Pt has been started on Eliquis 5mg BID. CHADSVASC 2 (HTN) of 1 but will await ECHO report. on dilt 30 q6 (new) and metoprolol 25mg daily(home) (2) Hypertension Current Visit: Yes Status: Acute Code(s): I10 - ESSENTIAL (PRIMARY) HYPERTENSION SNOMED Code(s): 44525189 Comment: on enalapril 5, metoprolol succinate 25mg (both home) also no dilt 30 q6 currently. (3) Former smoker Current Visit: Yes Status: Acute Code(s): Z87.891 - PERSONAL HISTORY OF NICOTINE DEPENDENCE SNOMED Code(s): 4802974 Comment: successful abstinence since June (4) ETOH abuse Current Visit: No Status: Acute Code(s): F10.10 - ALCOHOL ABUSE, UNCOMPLICATED SNOMED Code(s): 69571986 Comment: [facility] protocol, has not needed. not interested in inpatient rehab or AA was able to stop for 10 days recently last drinks 10/26 (5) Hypothyroidism Current Visit: No Status: Acute Code(s): E03.9 - HYPOTHYROIDISM, UNSPECIFIED SNOMED Code(s): 36013753 Comment: had mild elevation of TSH 5.85 and wnl FT4 in June TSH currenly 1.16, wnl FT4 on levothyroxine 25mcg Status and Disposition: medicine observation, may be able to go home if STERLING/CV
[2018-10-28] MEDS ORDERED: ValACYclovir (*) 500 MG TAB PO SCH (10:00)
--- NOTE | 2018-10-28 10:00 | ECHO ---
Patient: JAYSHREE INIGUEZ [facility] Rec#: [id number] : 1965 Date: 10/28/2018 Age: 53y Height: 193 cm / 76.0 in Weight: 102 kg / 224.8 lbs Sex: M BSA: 2.3 Room#: 440 Admit Date#: 10/27/2018 Type: Inpatient Referring: Kaelyn Lai Reading: Artur Marinelli MD Agricultural Education Professor: Jazzmine Nagy RN RDCS CC: Topher Low MD Transthoracic Echocardiogram Indication: Atrial flutter BP: 132/86 HR: 111 Rhythm: A-Flutter Findings History: HTN, HLD, smoker, ETOH use, angina Technical Comments: The study quality is fair. The study is technically limited due to the patient's smoking history. Left Ventricle: The left ventricular chamber size is normal. Mild concentric left ventricular hypertrophy is observed. Mild global hypokinesis of the left ventricle is observed. There is mildly decreased left ventricular systolic function. The estimated ejection fraction is 45-50%. The assessment of diastolic function is non-diagnostic. Left Atrium: The left atrium is mildly dilated. Right Ventricle: The right ventricular cavity size is normal. The right ventricular global systolic function is low normal. Right Atrium: The right atrium is mildly dilated. Aortic Valve: The aortic valve leaflets are mildly thickened. There is no evidence of aortic regurgitation. There is no evidence of aortic stenosis. Mitral Valve: The mitral valve leaflets are mildly thickened. There is mild mitral regurgitation. There is no evidence of mitral stenosis. Tricuspid Valve: The tricuspid valve leaflets are normal. There is trace tricuspid regurgitation. Unable to estimate the right ventricular systolic pressure. There is no tricuspid stenosis. Pulmonic Valve: The pulmonic valve appears normal. There is a trace pulmonic regurgitation. There is no pulmonic stenosis. Pericardium: There is no significant pericardial effusion. A pericardial fat pad is visualized. Aorta: There is no dilatation of the ascending aorta. There is no dilatation of the aortic arch. There is no dilation of the aortic root. Pulmonary Artery: The main pulmonary artery is not well visualized. Venous: The inferior vena cava appears normal in size. There is a greater than 50% respiratory change in the inferior vena cava dimension. Summary: There was not any prior study for comparison. Conclusions Mild global hypokinesis of the left ventricle is observed. There is mildly decreased left ventricular systolic function. The right ventricular global systolic function is low normal. There is no evidence of aortic stenosis. There is mild mitral regurgitation. There is trace tricuspid regurgitation. Unable to estimate the right ventricular systolic pressure. There is no significant pericardial effusion. Measurements Name Value Normal Range RVIDd (AP) 2D 2.5 cm (0.9 - 2.6) RVDdMajor (2D) 3.9 cm (2.2 - 4.4) RAd ISD 4CH 5.8 cm (3.4 - 4.9) RA (A4C)W 3.7 cm (2.9 - 4.6) IVSd (2D) 1.1 cm (0.6 - 1) LVPWd (2D) 1.1 cm (0.6 - 1) LVIDd (2D) 4.7 cm (3.6 - 5.4) LVIDs (2D) 3.7 cm - LV FS (2D) 21 % (25 - 45) Aortic Annulus 2.2 cm (1.4 - 2.6) Ao root diameter (2D) 2.9 cm (2.1 - 3.5) Ascending Ao 2.8 cm (2.1 - 3.4) LA dimension (AP) 2D 4.4 cm (2.3 - 3.8) LAd ISD 4CH 5.7 cm (2.9 - 5.3) LA ISD 4CH W 3.2 cm (2.5 - 4.5) Name Value Normal Range LA ESV BP (A/L) index 30.6 ml/m2 - Name Value Normal Range MV E-wave Vmax 0.94 m/sec - MV deceleration time 244 msec - LV septal e' Vmax 0.09 m/sec - LV lateral e' Vmax 0.11 m/sec - LV E:e' septal ratio 10.4 ratio - LV E:e' lateral ratio 8.5 ratio - Name Value Normal Range AV Vmax 1.1 m/sec - AV VTI 18.4 cm - AV peak gradient 4 mmHg - AV mean gradient 3 mmHg - LVOT Vmax 0.81 m/sec - LVOT VTI 14 cm - LVOT peak gradient 3 mmHg - LVOT mean gradient 1 mmHg - CONSTANCE Vmax 0.42 m/sec - Name Value Normal Range IVC diameter 1.8 cm - Name Value Normal Range PV Vmax 0.82 m/sec -
[2018-10-28] MEDS ORDERED: fentaNYL* 50 MCG/ML 2 ML VIAL (100 MCG VIAL) ONE ×2 (15:00→15:58)
[2018-10-28] MEDS ORDERED: Midazolam* 1 MG/ML 10 ML VIAL (10 MG) ONE ×2 (15:00→15:57)
[2018-10-28] MEDS ORDERED: Lidocaine 2% VISCOUS* 15 ML UDC ONE (15:01)
[2018-10-28] MEDS ORDERED: Flumazenil* 0.1 MG/ML 5 ML MDV ONE (15:01)
[2018-10-28] MEDS ORDERED: Naloxone* 0.4 MG/ML 1 ML VIAL ONE (15:01)
[2018-10-28 17:15] VITALS: BP 113/79
--- NOTE | 2018-10-28 17:59 | TEE ---
Patient: JAYSHREE INIGUEZ [facility] Rec#: [id number] : 1965 Date: 10/28/2018 Age: 53y Height: 193 cm / 76.0 in Weight: 101 kg / 222.6 lbs Sex: M BSA: 2.32 Room#: 440 Admit Date#: 10/27/2018 Type: Inpatient Referring: Artur Marinelli MD Performing: Artur Marinelli MD Reading: Artur Marinelli MD [employer]umber Press Operator: Sarah Bearden,ISSAC,RDMS CC: Topher Low MD Transesophageal Echocardiogram Indication: AFLUTTER BP: 143/95 HR: 128 Rhythm: A-Flutter Findings History: HTN, HLD, ETOH, smoker, angina. Technical Comments: The study quality is good. Left Ventricle: The left ventricular chamber size is normal. Mild global hypokinesis of the left ventricle is observed. There is mild to moderately decreased left ventricular systolic function. The estimated ejection fraction is 40-45%. The assessment of diastolic function is non-diagnostic. Left Atrium: The left atrial chamber size is normal. There is no thrombus visualized in the left atrial appendage. Right Ventricle: The right ventricular cavity size is normal. The right ventricular global systolic function is low normal. Right Atrium: The right atrial cavity size is normal. The bubble study is negative. A patent foramen ovale is not demonstrated with color Doppler and agitated contrast. Aortic Valve: The aortic valve is trileaflet. Systolic excursion of the aortic valve is normal. There is no evidence of aortic regurgitation. There is no evidence of aortic stenosis. Mitral Valve: The mitral valve leaflets appear normal. There is a trace of mitral regurgitation. There is no evidence of mitral stenosis. Tricuspid Valve: The tricuspid valve leaflets are normal. There is no evidence of tricuspid valve regurgitation. Pulmonic Valve: The pulmonic valve appears normal. There is a trace pulmonic regurgitation. Pericardium: There is no significant pericardial effusion. Aorta: The aortic root appears normal. Pulmonary Artery: The main pulmonary artery is not well visualized. Venous: The inferior vena cava appears normal. The flow pattern of the pulmonary veins appear normal. The superior vena cava appears normal. [facility] Procedures: All standard views were attempted within the limitations of patient tolerance and safety. History and physical as well as labs were reviewed. The patient was in a fasting state. Risks and benefits of the procedure, including alternatives, were discussed and written informed consent was obtained. The patient and/or their health care footwear sales representative expressed understanding of the procedure, risks and benefits. Baseline and continuous monitoring of blood pressure, heart rate, pulse oximetry and heart rhythm was performed throughout the procedure. The appropriate time-out procedure was performed as per [facility] protocol. The patient was placed in the left lateral decubitus position. The patient's posterior pharynx was anesthetized with 20ml of 2% viscous lidocaine. The patient received IV Midazolam with a total dose of 9 mg. The patient received IV Fentanyl with a total dose of 50 mcg. An oral bite block was inserted for protection of oral dentition. The multiplane transesophageal echocardiogram probe was inserted through the posterior oropharynx and advanced into the esophagus without difficulty. Multiple 2D images were obtained of the heart and its related structures. Color flow Doppler was used for evaluation. Spectral Doppler was also used. The atrial septum was interrogated with color flow Doppler. At the conclusion of the procedure the probe was removed with continuous suction without complications. The patient tolerated the procedure with no apparent complications. Contrast: Intravenous agitated saline contrast was used to assess intracardiac shunting. Conclusions Mild global hypokinesis of the left ventricle is observed. There is mild to moderately decreased left ventricular systolic function. The estimated ejection fraction is 40-45%. There is no thrombus visualized in the left atrial appendage. A patent foramen ovale is not demonstrated with color Doppler and agitated contrast. There is no evidence of aortic stenosis. There is a trace of mitral regurgitation. There is no evidence of tricuspid valve regurgitation. There is no significant pericardial effusion. Measurements Name Value Normal Range Ao root diameter (2D) 2.01 cm (2.1 - 3.5) Ascending Ao 3.01 cm (2.1 - 3.4) Name Value Normal Range MV E-wave Vmax 0.67 m/sec - MV deceleration time 110.48 msec - MV A-wave Vmax 0.03 m/sec - MV E:A ratio 22.34 ratio - Name Value Normal Range AV Vmax 0.85 m/sec - AV peak gradient 2.91 mmHg -
[2018-10-28] MEDS ORDERED: Metoprolol Succinate XL TAB* 25 MG PO SCH (18:00)
[2018-10-28] MEDS ORDERED: Dronedarone TAB* 400 MG PO SCH (18:00)
[2018-10-28] MEDS: Enalapril TAB* 5 MG PO SCH (18:03)
[2018-10-28] MEDS: Atorvastatin* 10 MG TAB PO SCH (18:04)
--- NOTE | 2018-10-28 20:51 | CONS ---
CARDIOLOGY CONSULTATION: DATE OF CONSULT: 10/28/18 REASON FOR CONSULTATION: Atrial flutter. HISTORY OF PRESENT ILLNESS: The patient is a 53-year-old gentleman with history of hypertension, hyperlipidemia, chronic alcohol abuse, who is admitted to the hospital with 2 weeks of shortness of breath and increased blood pressure. The patient states that this past summer, he was admitted to the hospital with shortness of breath. At that time, he reports they had an echocardiogram and a stress test, which were essentially unremarkable. He was discharged on medication for his hypertension. The patient states that he has been taking his medication. He occasionally checks his blood pressure and heart rate. He states that before , he did take his blood pressure and heart rate. At that time, his blood pressure was 150/100 and his pulse rate was 130. He did not take his pulse rate again until the day before admission and again, his heart rate was 130. He came to the emergency room. He was found to be in atrial flutter. He had a heart rate of 130. The patient's major complaint is just shortness of breath. He denies any angina. He denied any orthopnea. He denied any palpitations. No lightheadedness, dizziness, or syncope. The patient did get a chemical nuclear stress test, which showed no areas of ischemia, but did show hypokinesis of the inferior wall. His calculated ejection fraction was 52%, TID was 0.80. PAST SURGICAL HISTORY: Left shoulder surgery. OUTPATIENT MEDICATIONS: 1. Huntley-3 fish oil tablets. 2. Enalapril 5 mg a day. 3. Pravastatin 40 mg a day. 4. Metoprolol 25 mg once a day. 5. Acyclovir as needed. 6. Levothyroxine 25 mcg a day. ALLERGIES: No known drug allergies. FAMILY HISTORY: His father had a history of atrial fibrillation at 45. SOCIAL HISTORY: The patient reports that he quit smoking in June. He still continues to drink fairly heavily, 10 to 12 drinks a day. He denies recreational drug use. He lives alone. PHYSICAL EXAMINATION: Height is 6 feet and 4 inches, weight 222 pounds, blood pressure 132/86, temperature 98.5, heart rate 116, respiratory rate is 16. Sclerae anicteric. Oropharynx is pink without erythema. Carotids are 2+ without bruits. JVD is normal. Thyroid is normal. Cardiac Exam: S1, S2 without any murmurs, rubs, or gallops. Lungs are clear to auscultation bilaterally. There is no dullness to percussion. Abdomen is soft, nontender, nondistended with normoactive bowel sounds. Extremities: Show no edema. He has 2+ pulses throughout. DIAGNOSTIC STUDIES/LAB DATA: The patient's EKG demonstrates atrial flutter. His echocardiogram today demonstrates mildly reduced LV systolic function, ejection fraction of 40% to 45%, minimal valvular abnormalities. CBC within normal limits. Chemistries within normal limits. TSH was normal. IMPRESSION: This 53-year-old gentleman with onset of tachycardia of unknown duration, was brought to the emergency room, was found to be in atrial flutter. Again, it is unclear how long he has been in this rhythm. The patient is started on anticoagulation. He was started on Eliquis here in the hospital. RECOMMENDATIONS: My recommendation is the patient to undergo transesophageal echocardiogram and cardioversion to normal sinus rhythm. In fact, that was done today. The patient did have a transesophageal echocardiogram, showed no evidence of thrombus on the left atrial appendage. The patient was cardioverted to normal sinus rhythm. The patient will be discharged from the hospital today. My recommendation is to continue beta-manuel therapy, EDITA inhibitor, aspirin a day. The patient will be started on Eliquis 5 mg b.i.d. The patient will be started on Multaq 400 mg b.i.d. for antiarrhythmic medications. I will see the patient in followup in 2 weeks. This was discussed with Dr. Buster Farfan of the hospitalist service. [id number]/[facility] #: [id number] [facility]
--- NOTE | 2018-10-29 04:49 | CARD ---
CARDIOVERSION NOTE: DATE OF PROCEDURE: 10/28/18 PROCEDURE: Cardioversion. INDICATION: Atrial fibrillation/flutter. The patient is a 53-year-old gentleman who has been having episodes of shortness of breath and palpitations for over a month. The patient was admitted to the hospital with atrial flutter. His echocardiogram shows an ejection fraction of 45%. The patient was started on anticoagulation. The patient had just undergone transesophageal echocardiogram which demonstrated no evidence of thrombus and left atrial appendage. Cardioversion was recommended. PROCEDURE IN DETAIL: The patient was given an additional 4 mg of Versed for conscious sedation. The patient was cardioverted with 120 joules of synchronized biphasic energy. The patient converted to normal sinus rhythm. The patient tolerated the procedure well with no complications. The patient will be discharged on Eliquis 5 mg b.i.d., Multaq 400 mg b.i.d., EDITA inhibitor for blood pressure control. I will see the patient in follow up in 2 to 3 weeks. [id number]/[facility] #: [id number] [facility]
--- NOTE | 2018-10-29 09:55 | DS ---
DISCHARGE SUMMARY: DATE OF ADMISSION: 10/27/18 DATE OF DISCHARGE: 10/28/18 ADMITTING PROVIDER: Kaelyn Lai NP. ATTENDING PHYSICIAN ON THE DAY OF DISCHARGE: Buster Farfan MD. PRIMARY CARE PROVIDER: Topher Low MD CONSULTING SR. OPERATIONS MANAGER: Artur Marinelli MD CHIEF COMPLAINT: Tachycardia, episodes of near syncope, uncontrolled blood pressure. PRINCIPAL DIAGNOSIS: Atrial flutter; systolic dysfunction (EF 45-50%); alcoholism; hypertension. HISTORY OF PRESENT ILLNESS AND HOSPITAL COURSE: Ramana Chappell is a 53-year- old male with past medical history significant for hypertension, hypothyroidism , hyperlipidemia, severe alcohol abuse, longstanding alcohol abuse, who had been measuring his heart rate and blood pressure at home and noticed rates as high as the 120s. Please see [facility] Kaelyn Lai for full details. He is otherwise relatively asymptomatic, though he did say he almost passed out twice over that time period. He decided to abstain from alcohol to see if that "experiment" helped and abstained for 10 days. He, of note, is a very heavy drinker and usually drinking about 10 glasses of wine or so a night. He noticed no differences in the heart rate. He returned to drinking the day prior to admission. He denied any palpitations. He presented to [facility] Emergency Room and was found to be in A-flutter with heart rates initially 142. He was given IV diltiazem, then p.o., continued on his beta-manuel, started on Eliquis and Cardiology was consulted. His heart rates were in the 100s to 110s. By the morning of hospital day #2, Dr. Marinelli consulted and [place] cardioversion was performed with recommendation to start Multaq 400 mg p.o. b.i.d. and follow up within 2 to 3 weeks with continuation of Eliquis. He had an echocardiogram, which demonstrated mild global hypokinesis of the left ventricle with ejection fraction of 45-50%, function. Assessment: Mild mitral regurgitation, trace tricuspid regurgitation, right atrium was mildly dilated, left atrium was mildly dilated. He had negative troponins x3. TSH of 1.16, free T4 of 0.99, both within normal limits. D-dimer was negative at less than 200. Chest x-ray demonstrated stigmata of obstructive lung disease. No acute pulmonary or cardiac process evident. He recounted his previous attempts at alcohol cessation, which included 2 trips to inpatient rehab, last in 2010 after which he was sober for 6 months and also went to AA at that time, which he did not like. He takes encouragement from his recent cessation of longstanding smoking this past June when his hypertension was first diagnosed and he will attempt to quit alcohol without AA or inpatient rehabilitation. He did not require any Ativan for [facility] protocol. He was discharged on multivitamin, thiamine, and folic acid. DISCHARGE MEDICATIONS: Include: 1. Eliquis 5 mg p.o. b.i.d. (new). 2. Vitamin B12 (cyanocobalamin) 1000 mcg p.o. daily. 3. Enalapril 5 mg p.o. q.p.m. 4. Folic acid 1 mg p.o. daily (new). 5. Levothyroxine 25 mcg p.o. q.a.m. 6. Multivitamin 1 tab p.o. daily (new). 7. Pravastatin 40 mg p.o. 8. Thiamine 100 mg p.o. daily (new). 9. Valacyclovir 500 mg p.o. daily. 10. Dronedarone (Multaq) 400 mg p.o. b.i.d. (new). 11. Metoprolol succinate 25 mg p.o. q.p.m. 12. [place]-3 fatty acid 1 capsule p.o. daily. DISCHARGE DIET: Heart healthy, unchanged. ACTIVITY LEVEL: No restrictions. FOLLOWUP: Please follow up with Dr. Artur Marinelli within 2 to [address] Topher Low within 7 days. TIME SPENT ON DISCHARGE: 35 minutes. [id number]/[facility] #: [id number] [facility]ENTERAustin
== END 2018-10-28 18:26 | disposition home or self-care (01) ==
LOC: ED 10:49 → MEDTELE 14:14
PROVIDERS: ADMIT Student in an Organized Health Care Education/Training Program; ATTEND Internal Medicine
DX: I48.92 Unspecified atrial flutter (principal); I50.20 Unspecified systolic (congestive) heart failure; R00.0 Tachycardia, unspecified; R00.2 Palpitations; R42 Dizziness and giddiness; F10.20 Alcohol dependence, uncomplicated; I10 Essential (primary) hypertension; R53.83 Other fatigue; Z87.891 Personal history of nicotine dependence; E03.9 Hypothyroidism, unspecified
CPT/HCPCS: 36415; 71046; 80048; 80053; 83605; 83735; 84439; 84443; 84484; 85025; 85379; 93005; 93306; 93312; 93325; 96372; 96374; 96375; 96376; 99156; 99157; 99285; A9270-GY; G0378; J1644; J2060; J2250; J2310; J3010; J3411

== ENCOUNTER 2022-02-13 07:30 | Inpatient (IN) ==
[2022-02-22] MEDS ORDERED: ceFAZolin 2 GM in NS PREMIX 2 GM/100 ML BAG IVPB ONE (05:59)
[2022-02-22] MEDS ORDERED: Buffered Lidocaine 1% SYRIN 1 ml INTRADERM ONE (06:00)
[2022-02-22] MEDS ORDERED: Lactated Ringers 1000 ml BAG 1,000 ML IV SCH (06:00)
[2022-02-22 06:10] LABS: Activated Partial Thrombo Time 31.1 seconds (26.0-38.0); INR 0.96 (0.86-1.15)
[2022-02-22] MEDS ORDERED: Midazolam 2 mg/2 ml VIAL 1 mg/ml 2 ml VIAL (2 mg) ONE (07:00)
[2022-02-22] MEDS ORDERED: Naloxone 0.4 mg VIAL 0.4 mg/ml 1 ml VIAL IV PRN (07:43)
[2022-02-22] MEDS ORDERED: diPHENhydraMINE IV 50 MG/ML 1 ml VIAL (BENADRYL) IV PRN ×2 (07:43→08:41)
[2022-02-22] MEDS ORDERED: Prochlorperazine 5 mg/ml 2 ml VIAL (10 mg) IV PRN (07:43)
[2022-02-22] MEDS ORDERED: EPHEDrine (Pressors) 50 MG/ML VIAL ONE (08:13)
[2022-02-22] MEDS ORDERED: diPHENhydraMINE 25 mg TAB PO PRN (08:41)
[2022-02-22] MEDS ORDERED: Magnesium Hydroxide LIQ 30 ML UDC PO PRN (08:41)
[2022-02-22] MEDS ORDERED: Ondansetron 4 mg VIAL 2 MG/ML 2 ml VIAL IV PRN (08:41)
[2022-02-22] MEDS ORDERED: Ondansetron ODT 4 mg TAB 4 MG TAB PO PRN (08:41)
[2022-02-22] MEDS ORDERED: Lactulose 30 ml UDC PO PRN (08:41)
[2022-02-22] MEDS ORDERED: Morphine 2 MG/ML SYRINGE IV PRN (08:51)
[2022-02-22] MEDS ORDERED: Propofol 10 MG/ML 20 ML BTL ONE (09:05)
[2022-02-22] MEDS ORDERED: fentaNYL 100 mcg/2 ml 50 MCG/ML VIAL ONE (09:29)
[2022-02-22] MEDS ORDERED: HYDROmorphone 1 MG/1 ML SYRINGE ONE (10:42)
[2022-02-22] MEDS: HYDROmorphone 1 MG/1 ML SYRINGE IV PRN ×4 (10:44→11:24)
[2022-02-22] MEDS: Lactated Ringers 1000 ml BAG 1,000 ML IV SCH ×2 (12:10→22:55)
[2022-02-22] MEDS: Magnesium Hydroxide LIQ 30 ML UDC PO SCH ×2 (12:34→21:16)
[2022-02-22] MEDS: Vitamin THERAPEUTIC TAB PO SCH (12:35)
[2022-02-22] MEDS: NS 0.9% IVPB SCH (15:47)
[2022-02-22] MEDS: CEFAZOLIN IVPB SCH (15:47)
[2022-02-23] MEDS: CEFAZOLIN IVPB SCH ×2 (00:23→08:40)
[2022-02-23] MEDS: NS 0.9% IVPB SCH ×2 (00:23→08:40)
[2022-02-23 06:41] LABS: Hematocrit 38 % (42-52); Hemoglobin 12.8 g/dL (14.0-18.0); Mean Platelet Volume 8.5 fL (7.4-10.4); Platelet Count 186 10^3/uL (150-450)
[2022-02-23 07:16] LABS: Calcium 8.3 mg/dL (8.6-10.3); Potassium 4.7 mmol/L (3.5-5.0); eGFR CKD-EPI 91.1 (>60)
[2022-02-23] MEDS: Vitamin THERAPEUTIC TAB PO SCH (09:24)
[2022-02-23] MEDS: Magnesium Hydroxide LIQ 30 ML UDC PO SCH (09:27)
[2022-02-23 11:05] VITALS: BP 129/70
== END 2022-02-23 12:16 | disposition home health service (06) | DRG 301 ==
LOC: AA 02-22 05:44 → SSU 02-22 12:15
PROVIDERS: ADMIT Orthopaedic Surgery Adult Reconstructive Orthopaedic Surgery; ATTEND Orthopaedic Surgery Adult Reconstructive Orthopaedic Surgery